=== PATIENT | male | born 1970 | race Two or more races ===

== ENCOUNTER 2017-03-19 08:42 | Emergency (ER) | payer SELFPAY ==
[2017-03-19 08:50] VITALS: BP 144/82
--- NOTE | 2017-03-19 09:14 | ER Document Report ---
ED General - General Mode of Arrival: Ambulatory Information source: Patient TRAVEL OUTSIDE OF THE [place] IN LAST 30 DAYS: No - HPI Onset: Other - see narrative - General Chief Complaint: High Blood Pressure Stated Complaint: BLOOD PRESSURE ISSUES Time Seen by Provider: 03/19/17 09:00 Notes: Patient is a 46 year old male that presents to the emergency department today with complaints of needing a medication refill. Patient states that he has been unable to see his doctor recently. Patient states that he is on lisinopril 20mg once a day and Metformin 500 mg twice a day. Patient states that he thinks his Metformin dosage needs to be increased because his sugars are running in the 160s in the morning before breakfast. Patient states his blood pressure has been well controlled with this dosage of lisinopril. (HAYDEN LEE) - Related Data Allergies/Adverse Reactions: No Known Allergies Allergy (Verified 05/31/16 07:02) Past Medical History - General Information source: Patient - Social History Smoking Status: Never Smoker Cigarette use (# per day): No Chew tobacco use (# tins/day): No Frequency of alcohol use: None Drug Abuse: None Lives with: Family Family History: Reviewed & Not Pertinent - Past Medical History Cardiac Medical History: Reports: Hx Hypertension Endocrine Medical History: Reports: Hx Diabetes Mellitus Type 2 GI Medical History: Reports: Hx Gastroesophageal Reflux Disease Psychiatric Medical History: Reports: Hx Anxiety Surgical Hx: Negative - Immunizations Hx Diphtheria, Pertussis, Tetanus Vaccination: Yes Hx Pneumococcal Vaccination: 06/14/00 Review of Systems - Review of Systems Constitutional: No symptoms reported EENT: No symptoms reported Cardiovascular: No symptoms reported Respiratory: No symptoms reported Gastrointestinal: No symptoms reported Genitourinary: No symptoms reported Male Genitourinary: No symptoms reported Musculoskeletal: No symptoms reported Skin: No symptoms reported Hematologic/Lymphatic: No symptoms reported Neurological/Psychological: No symptoms reported -: Yes All other systems reviewed and negative Physical Exam - Vital signs Vitals: Temp Pulse Resp BP Pulse Ox 98.2 F 82 18 144/82 H 97 03/19/17 08:50 03/19/17 08:50 03/19/17 08:50 03/19/17 08:50 03/19/17 08:50 - Notes Notes: Physical Exam: General: Alert, appears well. HEENT: Normocephalic. Atraumatic. PERRL. Extraocular movements intact. Oropharynx clear. Neck: Supple. Non-tender. Respiratory: No respiratory distress. Clear and equal breath sounds bilaterally. Cardiovascular: Regular rate and rhythm. Abdominal: Normal Inspection. Non-tender. No distension. Normal Bowel Sounds. Back: Non-tender. No deformity or step off. Extremities: Moves all four extremities. Upper extremities: Normal inspection. Normal ROM. Lower extremities: Normal inspection. No edema. Normal ROM. Neurological: Normal cognition. AAOx4. Normal speech. Psychological: Normal affect. Normal Mood. Skin: Warm. Dry. Normal color. (HAYDEN LEE) - Vital Signs Vital signs: Temp Pulse Resp BP Pulse Ox 98.2 F 82 18 144/82 H 97 03/19/17 08:50 03/19/17 08:50 03/19/17 08:50 03/19/17 08:50 03/19/17 08:50 Discharge - Discharge Clinical Impression: Medication refill, High blood pressure associated with diabetes Condition: Stable Disposition: HOME, SELF-CARE Additional Instructions: Take medications as prescribed. Check your blood pressure and blood sugars every few days. Follow-up with a local medical doctor to provide ongoing medical care. RETURN TO THE EMERGENCY ROOM IF ANY NEW OR WORSENING SYMPTOMS. Prescriptions: Lisinopril 20 mg PO DAILY #90 tablet Metformin HCl 850 mg PO BID #180 tablet Scribe Attestation: 03/19/17 09:17 I personally performed the services described in the documentation, reviewed and edited the documentation which was dictated to the scribe in my presence, and it accurately records my words and actions. (TOLU SKELTON) Scribe Documentation - Scribe Written by Ender:: Ender Yeung, 03/19/2017 0950 acting as scribe for :: Dulce Maria
== END 2017-03-19 09:24 | disposition home or self-care (01) ==
LOC: ER 08:42
DX: Z76.0 Encounter for issue of repeat prescription (principal); E11.9 Type 2 diabetes mellitus without complications; R03.0 Elevated blood-pressure reading, without diagnosis of hypertension; Z79.899 Other long term (current) drug therapy
CPT/HCPCS: 99283

== ENCOUNTER 2017-05-30 12:05 | Emergency (ER) | payer SELFPAY ==
[2017-05-30 12:16] VITALS: BP 127/77
--- NOTE | 2017-05-30 13:00 | ER Document Report ---
ED General - General Chief Complaint: Medication Refill Stated Complaint: BLOOD SUGAR ISSUES Time Seen by Provider: 05/30/17 12:36 Mode of Arrival: Ambulatory Information source: Patient Notes: Patient is a 47-year-old male with hypertension and diabetes who presents to the ER today for refills on his metformin and lisinopril. Patient states that he took his last pills this morning. He states that he is without insurance for the next 3 months and unable to follow-up with his primary care provider. TRAVEL OUTSIDE OF THE [place] IN LAST 30 DAYS: No - Related Data Allergies/Adverse Reactions: No Known Allergies Allergy (Verified 05/30/17 12:06) Past Medical History - General Information source: Patient - Social History Smoking Status: Unknown if Ever Smoked Family History: Reviewed & Not Pertinent - Past Medical History Cardiac Medical History: Reports: Hx Hypertension Pulmonary Medical History: Denies: Hx Tuberculosis Endocrine Medical History: Reports: Hx Diabetes Mellitus Type 2 Renal/ Medical History: Denies: Hx Peritoneal Dialysis GI Medical History: Reports: Hx Gastroesophageal Reflux Disease Psychiatric Medical History: Reports: Hx Anxiety Denies: Hx Depression - Immunizations Hx Diphtheria, Pertussis, Tetanus Vaccination: Yes Hx Pneumococcal Vaccination: 06/14/00 Review of Systems - Review of Systems Constitutional: No symptoms reported EENT: No symptoms reported Cardiovascular: No symptoms reported Respiratory: No symptoms reported Gastrointestinal: No symptoms reported Genitourinary: No symptoms reported Male Genitourinary: No symptoms reported Musculoskeletal: No symptoms reported Skin: No symptoms reported Hematologic/Lymphatic: No symptoms reported Neurological/Psychological: No symptoms reported Physical Exam - Vital signs Vitals: Temp Pulse Resp BP Pulse Ox 97.9 F 75 16 127/77 H 98 05/30/17 12:15 05/30/17 12:15 05/30/17 12:15 05/30/17 12:15 05/30/17 12:15 - Notes Notes: PHYSICAL EXAMINATION: GENERAL: Well-appearing and in no acute distress. HEAD: Atraumatic, normocephalic. EYES: Pupils equal round and reactive to light, extraocular movements intact, sclera anicteric, conjunctiva are normal. NECK: Normal range of motion, supple without lymphadenopathy LUNGS: CTAB and equal. No wheezes rales or rhonchi. HEART: Regular rate and rhythm without murmurs EXTREMITIES: Normal range of motion, no pitting edema. No cyanosis. NEUROLOGICAL: Cranial nerves grossly intact. Normal sensory/motor exams. PSYCH: Normal mood, normal affect. SKIN: Warm, Dry, normal turgor, no rashes or lesions noted Course - Vital Signs Vital signs: Temp Pulse Resp BP Pulse Ox 97.9 F 75 16 127/77 H 98 05/30/17 12:15 05/30/17 12:15 05/30/17 12:15 05/30/17 12:15 05/30/17 12:15 Discharge - Discharge Clinical Impression: Diabetes type 2, controlled Qualifiers: Diabetes mellitus complication status: with unspecified complications Diabetes mellitus tank terminal gauger insulin use: without jail use Qualified Code(s): E11.8 - Type 2 diabetes mellitus with unspecified complications HTN (hypertension) Qualifiers: Hypertension type: unspecified Qualified Code(s): I10 - Essential (primary) hypertension Condition: Stable Disposition: HOME, SELF-CARE Additional Instructions: Return immediately for any new or worsening symptoms. Follow up with primary care provider, call tomorrow to make followup appointment. Prescriptions: Lisinopril 20 mg PO DAILY #90 tablet Metformin HCl 500 mg PO BID #180 tablet
== END 2017-05-30 13:06 | disposition home or self-care (01) ==
LOC: ER 12:05
DX: E11.8 Type 2 diabetes mellitus with unspecified complications (principal); I10 Essential (primary) hypertension; Z79.899 Other long term (current) drug therapy
CPT/HCPCS: 99284

== ENCOUNTER 2017-06-22 17:46 | Emergency (ER) | payer SELFPAY ==
[2017-06-22 17:56] VITALS: BP 101/62
--- NOTE | 2017-06-22 18:21 | ER Document Report ---
HPI - HPI Patient complains to provider of: Med refill Onset: Yesterday Quality of pain: No pain Severity: None Pain Level: 0 Context: Patient states he took his last prescriptions yesterday for hypertension and anxiety. Unable to get in with for med refills and is here requesting them. Denies any problems at this time. Associated Symptoms: None Exacerbated by: Denies Relieved by: Denies Similar symptoms previously: Yes Recently seen / treated by doctor: No - ROS ROS below otherwise negative: Yes Systems Reviewed and Negative: Yes All other systems reviewed and negative - CONSTITUTIONAL Constitutional: DENIES: Fever - EENT EENT: DENIES: Congestion - NEURO Neurology: DENIES: Headache - CARDIOVASCULAR Cardiovascular: DENIES: Chest pain - RESPIRATORY Respiratory: DENIES: Trouble Breathing - GASTROINTESTINAL Gastrointestinal: DENIES: Abdominal Pain - MUSCULOSKELETAL Musculoskeletal: DENIES: Extremity pain - DERM Skin Color: Normal Past Medical History - General Information source: Patient - Social History Smoking Status: Never Smoker Frequency of alcohol use: None Drug Abuse: None Lives with: Family Family History: Reviewed & Not Pertinent - Past Medical History Cardiac Medical History: Reports: Hx Hypertension Endocrine Medical History: Reports: Hx Diabetes Mellitus Type 2 GI Medical History: Reports: Hx Gastroesophageal Reflux Disease Psychiatric Medical History: Reports: Hx Anxiety Surgical Hx: Negative - Immunizations Hx Diphtheria, Pertussis, Tetanus Vaccination: Yes Hx Pneumococcal Vaccination: 06/14/00 Vertical Provider Document - CONSTITUTIONAL Agree With Documented VS: Yes Exam Limitations: No Limitations General Appearance: WD/WN, No Apparent Distress - INFECTION CONTROL TRAVEL OUTSIDE OF THE [place] IN LAST 30 DAYS: No - HEENT HEENT: Atraumatic, Normocephalic - RESPIRATORY Respiratory: Breath Sounds Normal, No Respiratory Distress O2 Sat by Pulse Oximetry: 98 - CARDIOVASCULAR Cardiovascular: Regular Rate, Regular Rhythm - MUSCULOSKELETAL/EXTREMETIES Musculoskeletal/Extremeties: MAEW - NEURO Level of Consciousness: Awake, Alert, Appropriate - DERM Integumentary: Warm, Dry Course - Re-evaluation Re-evalutation: 06/22/17 18:15 Patient has empty prescription bottles with him. Prescriptions will be given in the same dosage as written on the bottles. - Vital Signs Vital signs: Temp Pulse Resp BP Pulse Ox 98.8 F 105 H 14 101/62 98 06/22/17 17:54 06/22/17 17:54 06/22/17 17:54 06/22/17 17:54 06/22/17 17:54 Discharge - Discharge Clinical Impression: Medication refill, Anxiety Hypertension Qualifiers: Hypertension type: essential hypertension Qualified Code(s): I10 - Essential ( primary) hypertension Condition: Good Disposition: HOME, SELF-CARE Additional Instructions: Medication refills are being provided for you at this time. You must follow-up with your doctor for future refills. Return as needed Prescriptions: Hydroxyzine HCl 25 mg PO TID PRN #60 tablet PRN Reason: Lisinopril [Prinivil 30 mg Tablet] 30 mg PO DAILY #60 tablet Paroxetine HCl 20 mg PO DAILY #120 tablet
== END 2017-06-22 18:25 | disposition home or self-care (01) ==
LOC: ER 17:46
DX: Z76.0 Encounter for issue of repeat prescription (principal); I10 Essential (primary) hypertension; F41.9 Anxiety disorder, unspecified; E11.9 Type 2 diabetes mellitus without complications
CPT/HCPCS: 99281

== ENCOUNTER 2017-09-04 19:39 | Emergency (ER) | payer SELFPAY ==
[2017-09-04 19:53] VITALS: BP 155/83
--- NOTE | 2017-09-04 20:19 | ER Document Report ---
HPI - HPI Patient complains to provider of: Med refill Onset: Other Pain Level: Denies Context: Patient states he has been out of insurance and has not been able to refill his medications as he cannot afford to go to the doctor. 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 Associated Symptoms: Other - States he is out of his glyburide, lisinopril, paroxetine, and hydroxyzine Exacerbated by: Denies Relieved by: Denies Similar symptoms previously: Yes Recently seen / treated by doctor: No - ROS ROS below otherwise negative: Yes - CONSTITUTIONAL Constitutional: DENIES: Fever, Chills - EENT EENT: DENIES: Sore Throat, Ear Pain, Nasal Drainage-Clear, Nasal Drainage- Purulent, Congestion, Eye problems - NEURO Neurology: DENIES: Headache, Weakness, Vision blurred, Dizzinesss / Vertigo - CARDIOVASCULAR Cardiovascular: DENIES: Chest pain - RESPIRATORY Respiratory: DENIES: Trouble Breathing, Coughing - GASTROINTESTINAL Gastrointestinal: DENIES: Abdominal Pain, Nausea, Patient vomiting, Diarrhea, Constipation, Black / Bloody Stools - URINARY Urinary: DENIES: Dysuria, Urgency, Frequency - REPRODUCTIVE Reproductive: DENIES: Postmenopausal, Abnormal bleeding / discharge - MUSCULOSKELETAL Musculoskeletal: DENIES: Extremity pain, Back Pain, Neck Pain, Swelling - DERM Skin Color: Normal Skin Problems: None Past Medical History - General Information source: Patient - Social History Smoking Status: Never Smoker Cigarette use (# per day): No Chew tobacco use (# tins/day): No Smoking Education Provided: No Frequency of alcohol use: None Drug Abuse: None Lives with: Family Family History: Reviewed & Not Pertinent Patient has suicidal ideation: No Patient has homicidal ideation: No - Past Medical History Cardiac Medical History: Reports: Hx Hypertension Pulmonary Medical History: Reports: None EENT Medical History: Reports: None Neurological Medical History: Reports: None Endocrine Medical History: Reports: Hx Diabetes Mellitus Type 2 Renal/ Medical History: Reports: None GI Medical History: Reports: Hx Gastroesophageal Reflux Disease Musculoskeltal Medical History: Reports None Skin Medical History: Reports None Psychiatric Medical History: Reports: Hx Anxiety, Hx Depression Traumatic Medical History: Reports: None Infectious Medical History: Reports: None Surgical Hx: Negative Past Surgical History: Reports: None - Immunizations Hx Diphtheria, Pertussis, Tetanus Vaccination: Yes Hx Pneumococcal Vaccination: 06/14/00 Vertical Provider Document - CONSTITUTIONAL Agree With Documented VS: Yes Exam Limitations: No Limitations - INFECTION CONTROL TRAVEL OUTSIDE OF THE [place] IN LAST 30 DAYS: No - HEENT HEENT: Atraumatic, Normal ENT Exam, Normocephalic, PERRLA - NECK Neck: Normal Inspection, Supple - RESPIRATORY Respiratory: Breath Sounds Normal, No Respiratory Distress, Chest Non-Tender - CARDIOVASCULAR Cardiovascular: Regular Rate, Regular Rhythm - MUSCULOSKELETAL/EXTREMETIES Musculoskeletal/Extremeties: MAEW, FROM, Non-Tender - NEURO Level of Consciousness: Awake, Alert, Appropriate Motor/Sensory: No Motor Deficit, No Sensory Deficit, No Pronator Drift - DERM Integumentary: Warm, Dry, No Rash Course - Re-evaluation Re-evalutation: 09/05/17 01:43 Patient requesting 2 month supply of medications consulted Dr. Mccord who stated noted to give the patient 1 month and have him follow-up with care in community clinic. Patient was instructed that he needed to follow-up with care in community clinic or primary doctor he needed to be reevaluated for getting any more medication. 09/05/17 01:44 - Vital Signs Vital signs: Temp Pulse Resp BP Pulse Ox 99.0 F 84 155/83 H 97 09/04/17 19:52 09/04/17 19:52 09/04/17 19:52 09/04/17 19:52 Discharge - Discharge Clinical Impression: Medication refill HTN (hypertension) Qualifiers: Hypertension type: unspecified Qualified Code(s): I10 - Essential (primary) hypertension Diabetes Qualifiers: Diabetes mellitus type: type 2 Diabetes mellitus residential insulin use: without pipe layer helper use Diabetes mellitus complication status: without complication Qualified Code(s): E11.9 - Type 2 diabetes mellitus without complications Disposition: HOME, SELF-CARE Instructions: Family Physicians / Practices Additional Instructions: He was seen today for med refills for hydroxyzine, glyburide, lisinopril, paroxetine for your chronic conditions. You need to find yourself a local doctor and continue refilling these medications with your doctor who monitors these conditions. These are not medications that can just be refilled on a regular basis without you following up with your primary doctor. If you cannot follow-up with her primary doctor due to finances you need to go to the care in community clinic so that someone is monitoring your conditions. FOLLOW-UP CARE: If you have been referred to a physician for follow-up care, call the physician s office for an appointment as you were instructed or within the next two days. If you experience worsening or a significant change in your symptoms, notify the physician immediately or return to the Emergency Department at any time for re-evaluation. Prescriptions: Hydroxyzine HCl 25 mg PO Q8HP PRN #60 tablet PRN Reason: Glyburide 2.5 mg PO DAILY #30 tablet Lisinopril [Zestril] 30 mg PO DAILY #30 tablet Paroxetine HCl 20 mg PO DAILY #60 tablet Forms: Elevated Blood Pressure Referrals: [facility] [Provider Group] - Follow up as needed
== END 2017-09-04 21:07 | disposition home or self-care (01) ==
LOC: ER 19:39
DX: Z76.0 Encounter for issue of repeat prescription (principal); I10 Essential (primary) hypertension; E11.9 Type 2 diabetes mellitus without complications; F32.9 Major depressive disorder, single episode, unspecified
CPT/HCPCS: 99281

== ENCOUNTER 2017-11-15 10:47 | Inpatient (IN) | payer SELFPAY ==
[2017-11-15] MEDS ORDERED: ONDANSETRON HCL INJ/PF 4 MG/2 ML SDV IV ONE (11:29)
[2017-11-15] MEDS ORDERED: NORMAL SALINE 1000 ML 1,000 ML IV ONE ×2 (11:30→13:24)
--- NOTE | 2017-11-15 11:31 | ER Document Report ---
ED Medical Screen (RME) - General Chief Complaint: Nausea Stated Complaint: SICK Time Seen by Provider: 11/15/17 11:28 TRAVEL OUTSIDE OF THE [place] IN LAST 30 DAYS: No - HPI Notes: 11/15/17 11:30 Obese diabetic male presents with nausea vomiting diarrhea since Wednesday. Increasing weakness. Patient has been reporting high blood sugars around 300 home. States today he woke up unable to tolerate oral intake and diffuse myalgias. Denies fever is not sure if he has ever had DKA. - Related Data Allergies/Adverse Reactions: No Known Allergies Allergy (Verified 11/15/17 10:55) Past Medical History - Past Medical History Cardiac Medical History: Reports: Hx Hypertension Endocrine Medical History: Reports: Hx Diabetes Mellitus Type 2 Renal/ Medical History: Denies: Hx Peritoneal Dialysis GI Medical History: Reports: Hx Gastroesophageal Reflux Disease Psychiatric Medical History: Reports: Hx Anxiety, Hx Depression - Immunizations Hx Diphtheria, Pertussis, Tetanus Vaccination: Yes Physical Exam - Vital signs Vitals: Temp Pulse Resp BP Pulse Ox 98.8 F 90 18 111/62 98 11/15/17 11:09 11/15/17 11:09 11/15/17 11:09 11/15/17 11:09 11/15/17 11:09 Course - Vital Signs Vital signs: Temp Pulse Resp BP Pulse Ox 98.8 F 90 18 111/62 98 11/15/17 11:09 11/15/17 11:09 11/15/17 11:09 11/15/17 11:09 11/15/17 11:09 Doctor's Discharge - Discharge Referrals: BERTA GALAVIZ MD [Primary Care Provider] - Follow up as needed
[2017-11-15 12:23] LABS: ABSOLUTE LYMPHOCYTES (AUTO) 0.9 10^3/uL (0.5-4.7); ABSOLUTE MONOCYTES (AUTO) 0.7 10^3/uL (0.1-1.4); ABSOLUTE NEUT (AUTO) 8.8 10^3/uL (1.7-8.2); BASOPHILS % (AUTO) 0.3 % (0-2); HEMATOCRIT 36.1 % (37.9-51.0); HEMOGLOBIN 12.6 g/dL (13.5-17.0); MEAN CORPUSCULAR HEMOGLOBIN 29.8 pg (27.0-33.4); MEAN CORPUSCULAR HGB CONC 34.9 g/dL (32.0-36.0); MEAN CORPUSCULAR VOLUME 85 fl (80-97); MONOCYTES % (AUTO) 7.1 % (3-13); PLATELET COUNT 160 10^3/uL (150-450); RED BLOOD COUNT 4.24 10^6/uL (4.35-5.55); RED CELL DISTRIBUTION WIDTH 13.1 % (11.5-14.0); SEGMENTED NEUTROPHILS % (AUTO) 83.6 % (42-78); TOTAL CELLS COUNTED % (AUTO) 100 %; WHITE BLOOD COUNT 10.5 10^3/uL (4.0-10.5)
[2017-11-15 12:27] LABS: AMORPHOUS SEDIMENT,URINE TRACE /HPF; APPEARANCE,URINE SLIGHTLY-CLOUDY; BILIRUBIN,URINE NEGATIVE (NEGATIVE); COLOR,URINE YELLOW; GLUCOSE, URINE NEGATIVE (NEGATIVE); KETONES,URINE NEGATIVE (NEGATIVE); LEUKOCYTE ESTERASE,URINE NEGATIVE (NEGATIVE); NITRITE,URINE NEGATIVE (NEGATIVE); PROTEIN,URINE 30 mg/dL (NEGATIVE); URINE SPECIFIC GRAVITY 1.011; UROBILINOGEN,URINE NEGATIVE mg/dL (<2.0)
[2017-11-15 12:50] LABS: VENOUS BLOOD BASE EXCESS -11.3 mmol/L; VENOUS BLOOD HCO3 14.5 mmol/L (20-32); VENOUS BLOOD PCO2 33.6 mmHg (35-63); VENOUS BLOOD PH 7.25 (7.30-7.42)
[2017-11-15 12:53] LABS: ALANINE AMINOTRANSFERASE 20 U/L (21-72); ALBUMIN 4.8 g/dL (3.5-5.0); ALKALINE PHOSPHATASE 77 U/L (38-126); ASPARTATE AMINO TRANSFERASE 17 U/L (17-59); BILIRUBIN,DIRECT 0.3 mg/dL (0.0-0.4); BILIRUBIN,TOTAL 0.3 mg/dL (0.2-1.3); CALCIUM 8.3 mg/dL (8.4-10.2); GLUCOSE 55 mg/dL (75-110); POTASSIUM 5.3 mmol/L (3.6-5.0); TOTAL PROTEIN 8.4 g/dL (6.3-8.2)
[2017-11-15] MEDS ORDERED: RINGERS SOLUTION,LACTATED 1,000 ML IV ONE (12:53)
[2017-11-15 12:58] LABS: CARBON DIOXIDE 13 mmol/L (22-30); CHLORIDE 92 mmol/L (98-107); SODIUM 134.8 mmol/L (137-145)
[2017-11-15 13:01] LABS: ANION GAP 30 (5-19); BLOOD UREA NITROGEN 171 mg/dL (7-20)
[2017-11-15] MEDS ORDERED: NORMAL SALINE 1000 ML 1,000 ML IV PRN (13:54)
[2017-11-15] MEDS ORDERED: ONDANSETRON HCL INJ/PF 4 MG/2 ML SDV IV PRN (13:54)
[2017-11-15] MEDS ORDERED: LEVALBUTEROL HCL NEB 1.25 MG/3 ML AMPUL NEB PRN (13:54)
[2017-11-15] MEDS ORDERED: ONDANSETRON 4 MG TAB.RAPDIS PO PRN (13:54)
[2017-11-15] MEDS ORDERED: ACETAMINOPHEN 325 MG TABLET PO PRN (13:54)
[2017-11-15] MEDS ORDERED: DEXTROSE 40% GEL 15 GM TUBE PO PRN ×2 (14:02)
[2017-11-15] MEDS ORDERED: DEXTROSE 50%-WATER 25 GM/50 ML DISP.SYRIN IV PRN ×2 (14:02)
[2017-11-15] MEDS ORDERED: GLUCAGON,HUMAN RECOMB 1 MG INJ IM PRN (14:02)
--- NOTE | 2017-11-15 14:08 | ER Document Report ---
ED General - General Chief Complaint: Nausea Stated Complaint: SICK Time Seen by Provider: 11/15/17 11:28 TRAVEL OUTSIDE OF THE [place] IN LAST 30 DAYS: No - HPI Patient complains to provider of: Nausea vomiting Notes: Patient information nausea vomiting. Patient states ongoing since Wednesday. Denies any chest pain abdominal pain fever chills patient states that he feels weak throughout patient states is been greater than 24 hours since he is urinated. Patient denies chest pain abdominal pain hip pain currently is on metformin for diabetes lisinopril for hypertension and Mobic for arthritic pain. PCP is in [place] no recent antibiotics no recent travel - Related Data Allergies/Adverse Reactions: No Known Allergies Allergy (Verified 11/15/17 10:55) Past Medical History - Social History Smoking Status: Never Smoker Frequency of alcohol use: None Drug Abuse: None Family History: Reviewed & Not Pertinent Patient has suicidal ideation: No Patient has homicidal ideation: No - Past Medical History Cardiac Medical History: Reports: Hx Hypertension Endocrine Medical History: Reports: Hx Diabetes Mellitus Type 2 Renal/ Medical History: Denies: Hx Peritoneal Dialysis GI Medical History: Reports: Hx Gastroesophageal Reflux Disease Psychiatric Medical History: Reports: Hx Anxiety, Hx Depression - Immunizations Hx Diphtheria, Pertussis, Tetanus Vaccination: Yes Hx Pneumococcal Vaccination: 06/14/00 Review of Systems - Review of Systems Constitutional: Malaise, Weakness EENT: No symptoms reported Cardiovascular: No symptoms reported Respiratory: No symptoms reported Gastrointestinal: Nausea, Vomiting Genitourinary: No symptoms reported Male Genitourinary: No symptoms reported Musculoskeletal: No symptoms reported Skin: No symptoms reported Hematologic/Lymphatic: No symptoms reported Neurological/Psychological: No symptoms reported -: Yes All other systems reviewed and negative Physical Exam - Vital signs Vitals: Temp Pulse Resp BP Pulse Ox 98.8 F 90 18 111/62 98 11/15/17 11:09 11/15/17 11:09 11/15/17 11:09 11/15/17 11:09 11/15/17 11:09 Interpretation: Normal - General General appearance: Appears well, Alert - HEENT Head: Normocephalic, Atraumatic Eyes: Normal Pupils: PERRL - Respiratory Respiratory status: No respiratory distress Chest status: Nontender Breath sounds: Normal Chest palpation: Normal - Cardiovascular Rhythm: Regular Heart sounds: Normal auscultation Murmur: No - Abdominal Inspection: Normal Distension: No distension Bowel sounds: Normal Tenderness: Nontender Organomegaly: No organomegaly - Back Back: Normal, Nontender - Extremities General upper extremity: Normal inspection, Nontender, Normal color, Normal ROM , Normal temperature General lower extremity: Normal inspection, Nontender, Normal color, Normal ROM , Normal temperature, Normal weight bearing. No: Rosales's sign - Neurological Neuro grossly intact: Yes Cognition: Normal Orientation: AAOx4 Bright Coma Scale Eye Opening: Spontaneous [place] Coma Scale Verbal: Oriented [place] Coma Scale Motor: Obeys Commands [place] Coma Scale Total: 15 Speech: Normal Motor strength normal: LUE, RUE, LLE, RLE Sensory: Normal - Psychological Associated symptoms: Normal affect, Normal mood - Skin Skin Temperature: Warm Skin Moisture: Dry Skin Color: Normal Course - Re-evaluation Re-evalutation: 11/15/17 15:56 Metabolic acidosis with acute renal failure and uremia more likely from dehydration patient denies taking any excess of his medications. Patient will continue IV fluids will admit the patient for further evaluation to the hospital service. - Vital Signs Vital signs: Temp Pulse Resp BP Pulse Ox 97.4 F 82 16 117/59 L 100 11/15/17 14:57 11/15/17 14:57 11/15/17 14:57 11/15/17 14:57 11/15/17 14:57 - Laboratory Result Diagrams: 11/15/17 11:51 11/15/17 11:51 Laboratory results interpreted by me: 11/15/17 11/15/17 11/15/17 11:51 11:51 11:51 RBC 4.24 L Hgb 12.6 L Hct 36.1 L Seg Neutrophils % 83.6 H Lymphocytes % 9.0 L Absolute Neutrophils 8.8 H VBG pH 7.25 L VBG pCO2 33.6 L VBG HCO3 14.5 L Sodium 134.8 L Potassium 5.3 H Chloride 92 L Carbon Dioxide 13 L Anion Gap 30 H BUN 171 H Creatinine 12.23 H Est GFR ( Amer) 5 L Est GFR (Non-Af Amer) 4 L Glucose 55 L Calcium 8.3 L Phosphorus ALT 20 L Total Protein 8.4 H Urine Protein Urine Blood 11/15/17 11/15/17 11:51 11:51 RBC Hgb Hct Seg Neutrophils % Lymphocytes % Absolute Neutrophils VBG pH VBG pCO2 VBG HCO3 Sodium Potassium Chloride Carbon Dioxide Anion Gap BUN Creatinine Est GFR ( Amer) Est GFR (Non-Af Amer) Glucose Calcium Phosphorus 12.3 H ALT Total Protein Urine Protein 30 H Urine Blood MODERATE H Discharge - Discharge Clinical Impression: Metabolic acidosis, Nausea & vomiting, Acute renal failure with uremia Condition: Good Disposition: ADMITTED INPATIENT Admitting Provider: Hospitalist - [place] [facility] Admitted: Telemetry
[2017-11-15 14:37] LABS: URINE AMPHETAMINES SCREEN NEGATIVE; URINE BENZODIAZEPINES SCREEN NEGATIVE; URINE COCAINE SCREEN NEGATIVE; URINE MARIJUANA (THC) SCREEN NEGATIVE; URINE METHADONE SCREEN NEGATIVE; URINE PHENCYCLIDINE SCREEN NEGATIVE
[2017-11-15 14:38] LABS: URINE BARBITURATES SCREEN NEGATIVE
[2017-11-15 14:49] LABS: PHOSPHORUS 12.3 mg/dL (2.5-4.5)
--- NOTE | 2017-11-15 16:21 | PDOC H&P ---
History of Present Illness Admission Date/PCP: 11/15/17 14:28 BERTA GALAVIZ MD Patient complains of: Generalized weakness History of Present Illness: DOMINIK SARABIA is a 47 year old male with a history of Diabetes, not insulin dependent Hypertension Arthritis Home medications: Lisinopril- he has 2 bottles prescribed by two different MDs. One for 30mg and one for 20 mg- he takes both daily Metformin 500mg PO BID Meloxicam 15 mg daily He reports increased thirst and worsening weakness over the past three days. In the ER he was found to have elevated creatinine and BUN and metabolic acidosis. He was treated with IV fluids and referred for admission. Past Medical History Cardiac Medical History: Reports: Hypertension Endocrine Medical History: Reports: Diabetes Mellitus Type 2 GI Medical History: Reports: Gastroesophageal Reflux Disease Social History Smoking Status: Never Smoker Frequency of Alcohol Use: None Hx Recreational Drug Use: No Hx Prescription Drug Abuse: No - Advance Directive Resuscitation Status: Full Code Family History Family History: DM Parental Family History Reviewed: Yes Children Family History Reviewed: Yes Sibling(s) Family History Reviewed.: Yes Medication/Allergy Allergies/Adverse Reactions: No Known Allergies Allergy (Verified 11/15/17 10:55) Review of Systems Constitutional: PRESENT: chills. ABSENT: headache(s) Eyes: ABSENT: visual disturbances Nose, Mouth, and Throat: ABSENT: sore throat Cardiovascular: ABSENT: chest pain, palpitations Respiratory: ABSENT: dyspnea Gastrointestinal: PRESENT: nausea. ABSENT: abdominal pain, diarrhea, vomiting Genitourinary: ABSENT: dysuria, hematuria Musculoskeletal: ABSENT: joint swelling Integumentary: ABSENT: rash Neurological: ABSENT: focal weakness Psychiatric: ABSENT: hallucinations Endocrine: ABSENT: heat intolerance Hematologic/Lymphatic: ABSENT: easy bleeding Allergic/Immunologic: ABSENT: seasonal rhinorrhea Physical Exam Vital Signs: Temp Pulse Resp BP Pulse Ox 97.4 F 82 16 117/59 L 100 11/15/17 14:57 11/15/17 14:57 11/15/17 14:57 11/15/17 14:57 11/15/17 14:57 General appearance: PRESENT: no acute distress Head exam: PRESENT: normocephalic Eye exam: PRESENT: PERRLA. ABSENT: scleral icterus Ear exam: PRESENT: normal external ear exam Mouth exam: PRESENT: dry mucosa Throat exam: ABSENT: post pharyngeal erythema Neck exam: ABSENT: tracheal deviation Respiratory exam: PRESENT: symmetrical, unlabored. ABSENT: wheezes Cardiovascular exam: PRESENT: RRR GI/Abdominal exam: PRESENT: normal bowel sounds, soft Rectal exam: PRESENT: deferred Gentrourinary exam: ABSENT: indwelling catheter Extremities exam: ABSENT: calf tenderness, pedal edema Neurological exam: PRESENT: alert, awake, oriented to person, oriented to place , oriented to time, oriented to situation Psychiatric exam: PRESENT: appropriate affect Skin exam: ABSENT: rash Assessment & Plan - Diagnosis (1) ARF (acute renal failure) Is this a current diagnosis for this admission?: Yes Plan: Likely pre renal given BUN of 171. STAT renal US ordered to r/o obstruction- pending. Continue IV fluids. Hold nephrotoxic agents. Meloxicam, Lisinopril and Metformin will be held. Monitor urine output and renal function closely. CK and Lactic acid normal. Check urine sodium and creatinine Nephrology consult requested (2) Diabetes Is this a current diagnosis for this admission?: Yes Plan: Stop Metformin Diabetic diet and Insulin sliding scale - Time Time Spent: Greater than 70 Minutes - Inpatient Certification Based on my medical assessment, after consideration of the patient's comorbidities, presenting symptoms, or acuity I expect that the services needed warrant INPATIENT care.: Yes I certify that my determination is in accordance with my understanding of Medicare's requirements for reasonable and necessary INPATIENT services [42 CFR 412.3e].: Yes Medical Necessity: Need Close Monitoring Due to Risk of Patient Decompensation, Need For IV Fluids, Risk of Complication if Not Cared For in Hospital
[2017-11-15] MEDS: PANTOPRAZOLE SODIUM 40 MG VIAL IV SCH (17:50)
--- NOTE | 2017-11-15 18:54 | RADIOLOGY REPORT (SQ) ---
EXAM DESCRIPTION: [employer] COMPLETED DATE/TIME: 11/15/2017 6:46 pm REASON FOR STUDY: ARF COMPARISON: None. TECHNIQUE: Dynamic and static grayscale images acquired of the kidneys and bladder and recorded on P ACS. Additional selected color Doppler and spectral images recorded. LIMITATIONS: None. FINDINGS: RIGHT KIDNEY: Normal size. Normal echogenicity. No solid or suspicious masses. No h ydronephrosis. No calcifications. LEFT KIDNEY: Normal size. Normal echogenicity. No solid or suspicious masses. No hydronephrosi s. No calcifications. BLADDER: No masses. OTHER FINDINGS: No other significant finding. IMPRESSION: NORMAL RENAL AND BLADDER ULTRASOUND. TECHNICAL DOCUMENTATION: JOB ID: [id number] [employer]- All Rights Reserved Reading location - IP/workstation name: [email or web address]
[2017-11-15 19:57] LABS: ARTERIAL BLOOD BASE EXCESS -8.9 mmol/L; ARTERIAL BLOOD H2CO3 0.78 mmol/L (1.05-1.35); ARTERIAL BLOOD HCO3 14.8 mmol/L (20-26); ARTERIAL BLOOD PCO2 25.9 mmHg (35-45); ARTERIAL BLOOD PH 7.37 (7.35-7.45); ARTERIAL BLOOD PO2 108.5 mmHg (80-100); ARTERIAL BLOOD TOTAL CO2 15.6 mmol/L (23-27)
--- NOTE | 2017-11-15 19:57 | EKG REPORT ---
SEVERITY:- ABNORMAL ECG - SINUS RHYTHM RIGHT BUNDLE BRANCH BLOCK : Confirmed by: Barbie Wills MD 15-Nov-2017 19:56:41
[2017-11-15 19:58] LABS: ARTERIAL BLOOD FIO2 ROOM AIR
[2017-11-15 20:07] LABS: CALCIUM 7.5 mg/dL (8.4-10.2); GLUCOSE 65 mg/dL (75-110); POTASSIUM 5.5 mmol/L (3.6-5.0)
[2017-11-15 20:13] LABS: CARBON DIOXIDE 16 mmol/L (22-30); CHLORIDE 99 mmol/L (98-107); SODIUM 136.3 mmol/L (137-145)
[2017-11-15 20:16] LABS: ANION GAP 21 (5-19); BLOOD UREA NITROGEN 161 mg/dL (7-20)
[2017-11-15 20:40] LABS: URINE CREATININE 47.4 mg/dL (22-328)
--- NOTE | 2017-11-15 20:48 | PDOC CONSULTATION ---
Consultation Consult Date: 11/15/17 Consult reason:: ARF History of Present Illness Admission Date/PCP: 11/15/17 14:28 BERTA GALAVIZ MD History of Present Illness: DOMINIK SARABIA is a 47 year old male who has a history of hypertension, diabetes and OA. He came to the ER after several days of n/v. He has been having nausea and vomiting for the past three days. He also claims that he has been working out in heat all of those days and has been getting some cramping. In the ER labs were drawn that showed a creatinine in the 12s with a BUN in the 170s. He was given several bags of saline. A renal ultrasound was done that was normal. He denies s/s of uremia. He denies muscle aches. He denies the use of illegal drugs or trying to overdose on any of his medications or over the counter medications. He denies decreased urination, difficulty with urination, dysuria, or flank pain. He denies chest pain, SOB, fever, or chills. Past Medical History Endocrine Medical History: Reports: Diabetes Mellitus Type 2 GI Medical History: Reports: Gastroesophageal Reflux Disease Psychiatric Medical History: Reports: Depression Past Surgical History Past Surgical History: Reports: None Social History Smoking Status: Never Smoker Frequency of Alcohol Use: None Hx Recreational Drug Use: No Hx Prescription Drug Abuse: No - Advance Directive Resuscitation Status: Full Code Family History Parental Family History Reviewed: No Children Family History Reviewed: No Sibling(s) Family History Reviewed.: No Medication/Allergy Home Medications: Cyclobenzaprine HCl [Flexeril 10 mg Tablet] 10 mg PO Q8 11/15/17 Glyburide [Diabeta 2.5 Mg Tablet] 2.5 mg PO DAILY 11/15/17 Hydroxyzine HCl [Atarax 25 mg Tablet] 25 mg PO QHS 11/15/17 Ibuprofen [Motrin 800 mg Tablet] 800 mg PO Q8 11/15/17 Lisinopril [Prinivil 30 mg Tablet] 30 mg PO DAILY 11/15/17 Meloxicam [Mobic] 15 mg PO DAILY 11/15/17 Metformin HCl [Glucophage 500 mg Tablet] 500 mg PO BIDACBS 11/15/17 Paroxetine HCl [Paxil 20 mg Tablet] 20 mg PO DAILY 11/15/17 Allergies/Adverse Reactions: No Known Allergies Allergy (Verified 11/15/17 10:55) Review of Systems Constitutional: PRESENT: anorexia. ABSENT: chills, fever(s), headache(s), weakness Eyes: ABSENT: visual disturbances Nose, Mouth, and Throat: ABSENT: headache(s) Cardiovascular: ABSENT: chest pain, edema, palpitations Gastrointestinal: PRESENT: nausea, vomiting. ABSENT: abdominal pain, constipation, diarrhea Genitourinary: ABSENT: difficulty urinating, dysuria, hematuria Musculoskeletal: ABSENT: muscle weakness Neurological: ABSENT: dizziness, focal weakness, numbness, weakness Physical Exam Vital Signs: Temp Pulse Resp BP Pulse Ox 98.6 F 83 19 122/54 L 100 11/15/17 20:06 11/15/17 20:06 11/15/17 20:06 11/15/17 20:06 11/15/17 20:06 Intake & Output 11/14/17 11/15/17 11/16/17 06:59 06:59 06:59 Intake Total 150 Balance 150 Weight 99.1 kg General appearance: PRESENT: no acute distress, well-developed, well-nourished Eye exam: PRESENT: EOMI, PERRLA Neck exam: PRESENT: full ROM. ABSENT: JVD Respiratory exam: PRESENT: clear to auscultation dee. ABSENT: accessory muscle use, crackles, rales, wheezes Cardiovascular exam: PRESENT: RRR, +S1, +S2 GI/Abdominal exam: PRESENT: soft. ABSENT: ascites, distended, firm, mass, tenderness Extremities exam: ABSENT: pedal edema, tenderness, +1 edema, +2 edema Musculoskeletal exam: PRESENT: normal inspection. ABSENT: tenderness Neurological exam: PRESENT: alert, awake, oriented to person, oriented to place , oriented to time, oriented to situation Psychiatric exam: PRESENT: appropriate affect, normal mood Skin exam: PRESENT: dry, intact, warm Results Laboratory Results: 11/15/17 19:24 11/15/17 11/15/17 19:24 19:40 Carbonic Acid 0.78 L HCO3/H2CO3 Ratio 18:1 ABG pH 7.37 ABG pCO2 25.9 L ABG pO2 108.5 H ABG HCO3 14.8 L ABG O2 Saturation 98.0 ABG Base Excess -8.9 FiO2 ROOM AIR Sodium 136.3 L Potassium 5.5 H Chloride 99 Carbon Dioxide 16 L Anion Gap 21 H BUN 161 H Creatinine 10.17 H Est GFR ( Amer) 7 L Est GFR (Non-Af Amer) 5 L Glucose 65 L Calcium 7.5 L Impressions: Renal Ultrasound 11/15/17 00:00 IMPRESSION: NORMAL RENAL AND BLADDER ULTRASOUND. Assessment & Plan - Diagnosis (1) ARF (acute renal failure) Is this a current diagnosis for this admission?: Yes Plan: According to the patient's history looks to be nonoliguric, will follow up with close monitoring. Due to dehydration from n/v and sweating without the ability to replace what is lost. Other factors affecting was being on meloxicam. Renal ultrasound ruled out post renal. Continue with NS at a rate of 150mL an hour, hold meloxicam. No current indications for [employer]. Will reassess with more labs. Adjust all medications to renal function of 25 mL/min/1.73 m (2) Hyperkalemia Plan: give kayexelate 30g (3) Diabetes Is this a current diagnosis for this admission?: Yes Plan: hold metformin to prevent severe metabolic acidosis worsening (4) Hypertension Plan: hold medications and give NS (5) Metabolic acidosis Plan: start on sodium bicarbonate 1300mg bid (6) Nausea & vomiting Plan: on zofran
[2017-11-15] MEDS ORDERED: SODIUM POLYSTYRENE SULFONATE 15 GM/60 ML PO ONE (21:30)
[2017-11-15] MEDS: SODIUM BICARBONATE 650 MG TABLET PO SCH (22:53)
[2017-11-16] MEDS: RINGERS SOLUTION,LACTATED 1,000 ML IV PRN ×4 (01:25→21:49)
[2017-11-16] MEDS: PANTOPRAZOLE SODIUM 40 MG VIAL IV SCH ×2 (04:51→17:41)
[2017-11-16 06:24] LABS: ABSOLUTE LYMPHOCYTES (AUTO) 1.2 10^3/uL (0.5-4.7); ABSOLUTE MONOCYTES (AUTO) 0.7 10^3/uL (0.1-1.4); ABSOLUTE NEUT (AUTO) 5.2 10^3/uL (1.7-8.2); BASOPHILS % (AUTO) 0.2 % (0-2); EOSINOPHILS % (AUTO) 0.2 % (0-6); HEMOGLOBIN 12.1 g/dL (13.5-17.0); LYMPHOCYTES % (AUTO) 16.5 % (13-45); MEAN CORPUSCULAR HEMOGLOBIN 29.7 pg (27.0-33.4); MEAN CORPUSCULAR HGB CONC 34.6 g/dL (32.0-36.0); MEAN CORPUSCULAR VOLUME 86 fl (80-97); MONOCYTES % (AUTO) 9.4 % (3-13); PLATELET COUNT 130 10^3/uL (150-450); RED BLOOD COUNT 4.07 10^6/uL (4.35-5.55); RED CELL DISTRIBUTION WIDTH 13.1 % (11.5-14.0); SEGMENTED NEUTROPHILS % (AUTO) 73.7 % (42-78); TOTAL CELLS COUNTED % (AUTO) 100 %; WHITE BLOOD COUNT 7.1 10^3/uL (4.0-10.5)
[2017-11-16 06:42] LABS: CALCIUM 8.1 mg/dL (8.4-10.2); CHOLESTEROL 217.15 mg/dL (0-200); CREATINE KINASE 100 U/L (55-170); GLUCOSE 158 mg/dL (75-110); POTASSIUM 5.4 mmol/L (3.6-5.0); TRIGLYCERIDES 511 mg/dL (<150)
[2017-11-16 06:49] LABS: CARBON DIOXIDE 16 mmol/L (22-30); CHLORIDE 106 mmol/L (98-107); SODIUM 144.3 mmol/L (137-145)
[2017-11-16 06:53] LABS: DIRECT LDL 82 mg/dL (<100)
[2017-11-16 06:54] LABS: ANION GAP 22 (5-19); BLOOD UREA NITROGEN 135 mg/dL (7-20)
[2017-11-16 06:59] LABS: PHOSPHORUS 6.9 mg/dL (2.5-4.5)
[2017-11-16] MEDS: SODIUM BICARBONATE 650 MG TABLET PO SCH ×2 (10:25→21:48)
[2017-11-16] MEDS: INSULIN LISPRO 100 UNIT/ML 3 ML VIAL SUBCUT PRN ×2 (11:50→17:37)
--- NOTE | 2017-11-16 14:00 | PDOC PROGRESS REPORT ---
Subjective Progress Note for:: 11/16/17 Subjective:: Doing better, renal function improving. Good urine output Nephrology input appreciated Reason For Visit: ARF,METABOLIC ACIDOSIS Physical Exam Vital Signs: Temp Pulse Resp BP Pulse Ox 98.1 F 83 19 123/80 100 11/16/17 11:46 11/16/17 11:46 11/16/17 11:46 11/16/17 11:46 11/16/17 11:46 Intake & Output 11/15/17 11/16/17 11/17/17 06:59 06:59 06:59 Intake Total 2400 Output Total 650 Balance 1750 Weight 98.3 kg General appearance: PRESENT: no acute distress, well-developed, well-nourished Head exam: PRESENT: normocephalic Eye exam: ABSENT: scleral icterus Ear exam: PRESENT: normal external ear exam Mouth exam: PRESENT: moist, neck supple Respiratory exam: PRESENT: symmetrical, unlabored. ABSENT: crackles Cardiovascular exam: PRESENT: RRR. ABSENT: systolic murmur GI/Abdominal exam: PRESENT: normal bowel sounds, soft. ABSENT: tenderness Rectal exam: PRESENT: deferred Gentrourinary exam: ABSENT: indwelling catheter Extremities exam: ABSENT: pedal edema Musculoskeletal exam: PRESENT: ambulatory Neurological exam: PRESENT: alert, awake, oriented to person, oriented to place , oriented to time, oriented to situation Psychiatric exam: PRESENT: appropriate affect Skin exam: ABSENT: rash Results Laboratory Results: 11/16/17 05:13 11/16/17 05:13 11/15/17 11/15/17 11/16/17 19:24 19:40 05:13 WBC RBC Hgb Hct MCV MCH MCHC RDW Plt Count Seg Neutrophils % Lymphocytes % Monocytes % Eosinophils % Basophils % Absolute Neutrophils Absolute Lymphocytes Absolute Monocytes Absolute Eosinophils Absolute Basophils Carbonic Acid 0.78 L HCO3/H2CO3 Ratio 18:1 ABG pH 7.37 ABG pCO2 25.9 L ABG pO2 108.5 H ABG HCO3 14.8 L ABG O2 Saturation 98.0 ABG Base Excess -8.9 FiO2 ROOM AIR Sodium 136.3 L 144.3 Potassium 5.5 H 5.4 H Chloride 99 106 Carbon Dioxide 16 L 16 L Anion Gap 21 H 22 H BUN 161 H 135 H D Creatinine 10.17 H 7.61 H Est GFR ( Amer) 7 L 9 L Est GFR (Non-Af Amer) 5 L 8 L Glucose 65 L 158 H Calcium 7.5 L 8.1 L Phosphorus 6.9 H D Magnesium 1.7 Triglycerides 511 H Cholesterol 217.15 H LDL Cholesterol Direct 82 VLDL Cholesterol UNABLE TO CALCULATE HDL Cholesterol 36 L TSH 11/16/17 11/16/17 05:13 05:13 WBC 7.1 RBC 4.07 L Hgb 12.1 L Hct 35.0 L MCV 86 MCH 29.7 MCHC 34.6 RDW 13.1 Plt Count 130 L Seg Neutrophils % 73.7 Lymphocytes % 16.5 Monocytes % 9.4 Eosinophils % 0.2 Basophils % 0.2 Absolute Neutrophils 5.2 Absolute Lymphocytes 1.2 Absolute Monocytes 0.7 Absolute Eosinophils 0.0 Absolute Basophils 0.0 Carbonic Acid HCO3/H2CO3 Ratio ABG pH ABG pCO2 ABG pO2 ABG HCO3 ABG O2 Saturation ABG Base Excess FiO2 Sodium Potassium Chloride Carbon Dioxide Anion Gap BUN Creatinine Est GFR ( Amer) Est GFR (Non-Af Amer) Glucose Calcium Phosphorus Magnesium Triglycerides Cholesterol LDL Cholesterol Direct VLDL Cholesterol HDL Cholesterol TSH 0.53 11/16/17 05:13 Creatine Kinase 100 Impressions: Renal Ultrasound 11/15/17 00:00 IMPRESSION: NORMAL RENAL AND BLADDER ULTRASOUND. Assessment & Plan - Diagnosis (1) ARF (acute renal failure) Is this a current diagnosis for this admission?: Yes Plan: LPrerenal Renal US did not show obstruction Continue IV fluids. Avoid nephrotoxic agents. Meloxicam, Lisinopril and Metformin on hold. Monitor urine output and renal function closely. (2) Diabetes Is this a current diagnosis for this admission?: Yes Plan: Metformin on hold Diabetic diet and Insulin sliding scale (3) Hypertension Is this a current diagnosis for this admission?: Yes Plan: Well controlled. Off Lisinopril (4) Metabolic acidosis Is this a current diagnosis for this admission?: Yes Plan: Continue bicarb supplementation - Time Time Spent with patient: 25-34 minutes
--- NOTE | 2017-11-16 15:46 | PDOC PROGRESS REPORT ---
Subjective Progress Note for:: 11/16/17 Subjective:: Patient was sitting up in his chair in a happy mood. He was stating that since he feels so well he thinks he can go home. After discussing with him about his kidneys and their function he was willing to stay longer. Patient is not following strict urine collections so I and Os are not accurate. Reason For Visit: ARF,METABOLIC ACIDOSIS Physical Exam Vital Signs: Temp Pulse Resp BP Pulse Ox 98.1 F 104 H 19 123/80 100 11/16/17 11:46 11/16/17 14:00 11/16/17 11:46 11/16/17 11:46 11/16/17 11:46 Intake & Output 11/15/17 11/16/17 11/17/17 06:59 06:59 06:59 Intake Total 2400 Output Total 650 Balance 1750 Weight 98.3 kg General appearance: PRESENT: no acute distress, well-developed, well-nourished Mouth exam: PRESENT: dry mucosa, neck supple Neck exam: PRESENT: full ROM. ABSENT: JVD Respiratory exam: PRESENT: clear to auscultation dee. ABSENT: accessory muscle use, crackles, rales, rhonchi, wheezes Cardiovascular exam: PRESENT: RRR, +S1, +S2 GI/Abdominal exam: PRESENT: soft. ABSENT: ascites, distended, firm, mass, tenderness Extremities exam: ABSENT: pedal edema, +1 edema, +2 edema Musculoskeletal exam: PRESENT: normal inspection. ABSENT: tenderness Neurological exam: PRESENT: alert, awake, oriented to person, oriented to place , oriented to time, oriented to situation Skin exam: PRESENT: dry, intact, warm Results Laboratory Results: 11/16/17 05:13 11/16/17 05:13 11/15/17 11/15/17 11/16/17 19:24 19:40 05:13 WBC RBC Hgb Hct MCV MCH MCHC RDW Plt Count Seg Neutrophils % Lymphocytes % Monocytes % Eosinophils % Basophils % Absolute Neutrophils Absolute Lymphocytes Absolute Monocytes Absolute Eosinophils Absolute Basophils Carbonic Acid 0.78 L HCO3/H2CO3 Ratio 18:1 ABG pH 7.37 ABG pCO2 25.9 L ABG pO2 108.5 H ABG HCO3 14.8 L ABG O2 Saturation 98.0 ABG Base Excess -8.9 FiO2 ROOM AIR Sodium 136.3 L 144.3 Potassium 5.5 H 5.4 H Chloride 99 106 Carbon Dioxide 16 L 16 L Anion Gap 21 H 22 H BUN 161 H 135 H D Creatinine 10.17 H 7.61 H Est GFR ( Amer) 7 L 9 L Est GFR (Non-Af Amer) 5 L 8 L Glucose 65 L 158 H Calcium 7.5 L 8.1 L Phosphorus 6.9 H D Magnesium 1.7 Triglycerides 511 H Cholesterol 217.15 H LDL Cholesterol Direct 82 VLDL Cholesterol UNABLE TO CALCULATE HDL Cholesterol 36 L TSH 11/16/17 11/16/17 05:13 05:13 WBC 7.1 RBC 4.07 L Hgb 12.1 L Hct 35.0 L MCV 86 MCH 29.7 MCHC 34.6 RDW 13.1 Plt Count 130 L Seg Neutrophils % 73.7 Lymphocytes % 16.5 Monocytes % 9.4 Eosinophils % 0.2 Basophils % 0.2 Absolute Neutrophils 5.2 Absolute Lymphocytes 1.2 Absolute Monocytes 0.7 Absolute Eosinophils 0.0 Absolute Basophils 0.0 Carbonic Acid HCO3/H2CO3 Ratio ABG pH ABG pCO2 ABG pO2 ABG HCO3 ABG O2 Saturation ABG Base Excess FiO2 Sodium Potassium Chloride Carbon Dioxide Anion Gap BUN Creatinine Est GFR ( Amer) Est GFR (Non-Af Amer) Glucose Calcium Phosphorus Magnesium Triglycerides Cholesterol LDL Cholesterol Direct VLDL Cholesterol HDL Cholesterol TSH 0.53 11/16/17 05:13 Creatine Kinase 100 Impressions: Renal Ultrasound 11/15/17 00:00 IMPRESSION: NORMAL RENAL AND BLADDER ULTRASOUND. Assessment & Plan - Diagnosis (1) ARF (acute renal failure) Is this a current diagnosis for this admission?: Yes Plan: continue on normal saline at 150mL an hour, creatinine is currently getting better. (2) Hyperkalemia Plan: improving (3) Diabetes Is this a current diagnosis for this admission?: Yes Plan: discussed proper diabetic diet (4) Hypertension Is this a current diagnosis for this admission?: Yes Plan: continue holding medications (5) Metabolic acidosis Is this a current diagnosis for this admission?: Yes Plan: improving, continue on PO sodium bicarb (6) Nausea & vomiting Plan: resolved - Notes Notes: case and plan was discussed with Dr. Moctezuma
[2017-11-16] MEDS ORDERED: ZOLPIDEM TARTRATE 5 MG TABLET PO PRN (20:39)
[2017-11-16] MEDS ORDERED: LACTULOSE SYRUP 20 GM/30 ML UDCUP PO ONE (21:15)
[2017-11-17] MEDS: RINGERS SOLUTION,LACTATED 1,000 ML IV PRN (04:46)
[2017-11-17] MEDS: PANTOPRAZOLE SODIUM 40 MG VIAL IV SCH (05:36)
[2017-11-17 06:36] LABS: ABSOLUTE EOSINOPHILS # (AUTO) 0.1 10^3/uL (0.0-0.6); ABSOLUTE LYMPHOCYTES (AUTO) 1.6 10^3/uL (0.5-4.7); ABSOLUTE MONOCYTES (AUTO) 0.6 10^3/uL (0.1-1.4); ABSOLUTE NEUT (AUTO) 4.4 10^3/uL (1.7-8.2); BASOPHILS % (AUTO) 0.5 % (0-2); EOSINOPHILS % (AUTO) 0.9 % (0-6); HEMATOCRIT 36.8 % (37.9-51.0); HEMOGLOBIN 12.7 g/dL (13.5-17.0); LYMPHOCYTES % (AUTO) 23.6 % (13-45); MEAN CORPUSCULAR HEMOGLOBIN 29.8 pg (27.0-33.4); MEAN CORPUSCULAR HGB CONC 34.4 g/dL (32.0-36.0); MEAN CORPUSCULAR VOLUME 87 fl (80-97); MONOCYTES % (AUTO) 9.3 % (3-13); PLATELET COUNT 138 10^3/uL (150-450); RED BLOOD COUNT 4.25 10^6/uL (4.35-5.55); RED CELL DISTRIBUTION WIDTH 13.1 % (11.5-14.0); SEGMENTED NEUTROPHILS % (AUTO) 65.7 % (42-78); TOTAL CELLS COUNTED % (AUTO) 100 %; WHITE BLOOD COUNT 6.8 10^3/uL (4.0-10.5)
[2017-11-17 07:00] LABS: ANION GAP 17 (5-19); BLOOD UREA NITROGEN 71 mg/dL (7-20); CALCIUM 8.9 mg/dL (8.4-10.2); CARBON DIOXIDE 22 mmol/L (22-30); CHLORIDE 107 mmol/L (98-107); GLUCOSE 179 mg/dL (75-110); PHOSPHORUS 3.8 mg/dL (2.5-4.5); POTASSIUM 4.7 mmol/L (3.6-5.0); SODIUM 145.5 mmol/L (137-145)
[2017-11-17] MEDS ORDERED: MAGNESIUM SULFATE 4 GM/100 ML RTUPB IV ONE (08:30)
[2017-11-17] MEDS: SODIUM BICARBONATE 650 MG TABLET PO SCH (09:28)
[2017-11-17] MEDS ORDERED: GLIPIZIDE 5 MG TABLET PO SCH (13:30)
--- NOTE | 2017-11-17 13:38 | PDOC DISCHARGE SUMMARY ---
General - Admit/Disc Date/PCP Admission Date/Primary Care Provider: 11/15/17 14:28 BERTA GALAVIZ MD Nephrology: Dr. Moctezuma Discharge Date: 11/17/17 - Discharge Diagnosis (1) ARF (acute renal failure) Is this a current diagnosis for this admission?: Yes Summary: Due to dehydrations, NSAID and SCEI use. Much improved (2) Diabetes Is this a current diagnosis for this admission?: Yes Summary: Metformin stopped. Glyburide continued (3) Hypertension Is this a current diagnosis for this admission?: Yes Summary: BP was running low normal. Lisinopril stopped. Amlodipine 2.5 mg daily prescription given (4) Metabolic acidosis Is this a current diagnosis for this admission?: Yes - Additional Information Resuscitation Status: Full Code Discharge Diet: Diabetic, Other (Comments) - Drink plentty of fluids- at least a half a gallon daily Discharge Activity: Balance Activity w/Rest Prescriptions: Amlodipine Besylate [Norvasc 2.5 mg Tablet] 2.5 mg PO DAILY 15 Days #15 tablet Home Medications: Cyclobenzaprine HCl [Flexeril 10 mg Tablet] 10 mg PO Q8 11/15/17 Glyburide [Diabeta 2.5 mg Tablet] 2.5 mg PO DAILY 11/15/17 Hydroxyzine HCl [Atarax 25 mg Tablet] 25 mg PO QHS 11/15/17 Paroxetine HCl [Paxil 20 mg Tablet] 20 mg PO DAILY 11/15/17 Acetaminophen [Tylenol 325 mg Tablet] 650 mg PO Q4HP PRN tablet 11/17/17 Amlodipine Besylate [Norvasc 2.5 mg Tablet] 2.5 mg PO DAILY 15 Days #15 tablet 11/17/17 History of Present Illness History of Present Illness: DOMINIK SARABIA is a 47 year old male with a history of Diabetes, not insulin dependent Hypertension Arthritis Home medications: Lisinopril- he has 2 bottles prescribed by two different MDs. One for 30mg and one for 20 mg- he takes both daily Metformin 500mg PO BID Meloxicam 15 mg daily Flexeril Glyburide Ibuprofen He reports increased thirst and worsening weakness over the past three days. In the ER he was found to have ARF with BUN of 171 and Creatinine 12.23 and metabolic acidosis. He was treated with IV fluids and referred for admission. he was treated with IV fluids. Nephrotoxic medications- NSAIDS Lisinopril held. No e/o lactic acidosis His renal function rapidly improved with hydration. Renal US showed no obstruction. Creatinine is 2.1 on the day of discharge Hospital Course Hospital Course: He was seen by the Nephrology service and will be followed by them as an outpatient for follow up labs. To see his PCP in 1 week He is ready for discharge home and was asked to drink plenty of water Physical Exam Vital Signs: Temp Pulse Resp BP Pulse Ox 98.5 F 80 18 128/77 H 99 11/17/17 08:00 11/17/17 10:54 11/17/17 10:54 11/17/17 08:00 11/17/17 10:54 Intake & Output 11/16/17 11/17/17 11/18/17 06:59 06:59 06:59 Intake Total 2400 5382 Output Total 650 Balance 1750 5382 Weight 98.3 kg 98.5 kg General appearance: PRESENT: no acute distress Respiratory exam: PRESENT: symmetrical, unlabored Neurological exam: PRESENT: alert, awake Results Laboratory Results: 11/17/17 05:24 11/17/17 05:24 11/17/17 11/17/17 05:24 05:24 WBC 6.8 RBC 4.25 L Hgb 12.7 L Hct 36.8 L MCV 87 MCH 29.8 MCHC 34.4 RDW 13.1 Plt Count 138 L Seg Neutrophils % 65.7 Lymphocytes % 23.6 Monocytes % 9.3 Eosinophils % 0.9 Basophils % 0.5 Absolute Neutrophils 4.4 Absolute Lymphocytes 1.6 Absolute Monocytes 0.6 Absolute Eosinophils 0.1 Absolute Basophils 0.0 Sodium 145.5 H Potassium 4.7 Chloride 107 Carbon Dioxide 22 Anion Gap 17 BUN 71 H Creatinine 2.13 H Est GFR ( Amer) 40 L Est GFR (Non-Af Amer) 33 L Glucose 179 H Calcium 8.9 Phosphorus 3.8 Magnesium 1.4 L 11/16/17 05:13 Creatine Kinase 100 Impressions: Renal Ultrasound 11/15/17 00:00 IMPRESSION: NORMAL RENAL AND BLADDER ULTRASOUND. Status: Imported from [facility] Qual[facility] - * PATIENT BEING DISCHARGED WITH ANY OF THE FOLLOWING DIAGNOSIS: No Plan Time Spent: Less than 30 Minutes
[2017-11-17] MEDS: INSULIN LISPRO 100 UNIT/ML 3 ML VIAL SUBCUT PRN (13:39)
--- NOTE | 2017-11-17 13:46 | PDOC PROGRESS REPORT ---
Subjective Progress Note for:: 11/17/17 Subjective:: patient was seen today sitting up in his chair feeling well. He had no concerns at the time. He said that he was having significant urine out put. He denies chest pain, SOB, fevers, chills, n/v/d/c. Reason For Visit: ARF,METABOLIC ACIDOSIS Physical Exam Vital Signs: Temp Pulse Resp BP Pulse Ox 98.5 F 80 18 128/77 H 99 11/17/17 08:00 11/17/17 10:54 11/17/17 10:54 11/17/17 08:00 11/17/17 10:54 Intake & Output 11/16/17 11/17/17 11/18/17 06:59 06:59 06:59 Intake Total 2400 5382 Output Total 650 Balance 1750 5382 Weight 98.3 kg 98.5 kg General appearance: PRESENT: no acute distress, well-developed, well-nourished Mouth exam: PRESENT: moist, neck supple Neck exam: PRESENT: full ROM. ABSENT: JVD Respiratory exam: PRESENT: clear to auscultation dee. ABSENT: accessory muscle use, crackles, rales, rhonchi, wheezes Cardiovascular exam: PRESENT: RRR, +S1, +S2 GI/Abdominal exam: PRESENT: soft. ABSENT: ascites, distended, firm, mass, tenderness Extremities exam: ABSENT: pedal edema, tenderness, +1 edema, +2 edema Musculoskeletal exam: PRESENT: normal inspection. ABSENT: tenderness Neurological exam: PRESENT: alert, awake, oriented to person, oriented to place , oriented to time, oriented to situation, CN II-XII grossly intact. ABSENT: motor sensory deficit Psychiatric exam: PRESENT: appropriate affect, normal mood Skin exam: PRESENT: dry, intact, warm Results Laboratory Results: 11/17/17 05:24 11/17/17 05:24 11/17/17 11/17/17 05:24 05:24 WBC 6.8 RBC 4.25 L Hgb 12.7 L Hct 36.8 L MCV 87 MCH 29.8 MCHC 34.4 RDW 13.1 Plt Count 138 L Seg Neutrophils % 65.7 Lymphocytes % 23.6 Monocytes % 9.3 Eosinophils % 0.9 Basophils % 0.5 Absolute Neutrophils 4.4 Absolute Lymphocytes 1.6 Absolute Monocytes 0.6 Absolute Eosinophils 0.1 Absolute Basophils 0.0 Sodium 145.5 H Potassium 4.7 Chloride 107 Carbon Dioxide 22 Anion Gap 17 BUN 71 H Creatinine 2.13 H Est GFR ( Amer) 40 L Est GFR (Non-Af Amer) 33 L Glucose 179 H Calcium 8.9 Phosphorus 3.8 Magnesium 1.4 L 11/16/17 05:13 Creatine Kinase 100 Impressions: Renal Ultrasound 11/15/17 00:00 IMPRESSION: NORMAL RENAL AND BLADDER ULTRASOUND. Assessment & Plan - Diagnosis (1) ARF (acute renal failure) Is this a current diagnosis for this admission?: Yes Plan: Greatly improved, at this time the patient is clear for discharge from nephrology's standpoint. Advised him to drink plenty of water and follow up with Dr. Moctezuma's office in 10 to 14 days. (2) Hyperkalemia Plan: stable (3) Diabetes Is this a current diagnosis for this admission?: Yes Plan: continue to hold metformin until GFR for kidneys is above 40. (4) Hypertension Is this a current diagnosis for this admission?: Yes Plan: well controlled (5) Metabolic acidosis Is this a current diagnosis for this admission?: Yes Plan: decreasing sodium bicarb to 650mg BID (6) Hypomagnesemia Plan: most likely due to increased urination. Once he receives his IV magnesium, recommend 400mg of PO magnesium qd for when he is discharged - Notes Notes: Patients case was discussed and reviewed with Dr. Moctezuma
[2017-11-17 14:33] VITALS: BP 137/75
[2017-11-18] MEDS ORDERED: AMLODIPINE BESYLATE 2.5 MG TABLET PO SCH (10:00)
== END 2017-11-17 19:02 | disposition home or self-care (01) | DRG 683 ==
LOC: ER 10:47 → EH 14:28 → 4S 15:26
PROVIDERS: ADMIT Internal Medicine; ATTEND Internal Medicine
DX: N17.9 Acute kidney failure, unspecified (principal); E87.2 Acidosis; E83.42 Hypomagnesemia; E11.9 Type 2 diabetes mellitus without complications; E86.0 Dehydration; I10 Essential (primary) hypertension; K21.9 Gastro-esophageal reflux disease without esophagitis; M19.90 Unspecified osteoarthritis, unspecified site; F41.8 Other specified anxiety disorders; Z79.84 Long term (current) use of oral hypoglycemic drugs; Z79.899 Other long term (current) drug therapy
CPT/HCPCS: 36415; 36600; 76775; 80048; 80053; 80061; 80307; 81001; 82550; 82570; 82803; 82962; 83036; 83605; 83735; 84100; 84300; 84443; 85025; 93005; 93010; 96361; 96374; 99285; J1815; J2405; J3475; J7030; J7120; S0164

== ENCOUNTER 2017-11-29 11:27 | Emergency (ER) | payer SELFPAY ==
[2017-11-29 11:32] VITALS: BP 136/77
--- NOTE | 2017-11-29 12:10 | ER Document Report ---
HPI - HPI Pain Level: 5 Notes: Patient is a 47-year-old male with a history of hypertension, diabetes, arthritis, anxiety, insomnia who presents to the ED primarily for medication refills and having trouble sleeping over the last 3 days. Patient states that he also has ongoing left-sided thoracic back pain and an occasional intermittent headache which is not unusual for him. Patient states that his pains are "mild" which is what he takes medicine for. Patient states that he has been monitoring his glucose and it has been running in the low 100s. Patient was admitted to the hospital for acute renal failure about 2 weeks ago. Patient states that he has been feeling much better since then and is eating and drinking without any difficulties. He is urinating normally and having normal bowel movements. Patient states he does not feel ill otherwise. He denies any drug allergies. Patient has not been in to see his primary care doctor since he was discharged. Denies any drug allergies or IV drug use. Denies any current headache, fever, head injury, neck pain, changes in vision/ speech/mentation/hearing, URI, sore throat, chest pain, palpitations, syncope, cough, shortness of breath, wheeze, dyspnea, abdominal pain, nausea/vomiting/ diarrhea, urinary retention, dysuria, hematuria, loss of control of bowel or bladder, numbness/tingling, saddle anesthesia, muscle paralysis/weakness, or rash. - ROS Systems Reviewed and Negative: Yes All other systems reviewed and negative Past Medical History - Social History Smoking Status: Never Smoker Family History: DM - Past Medical History Cardiac Medical History: Reports: Hx Hypertension Endocrine Medical History: Reports: Hx Diabetes Mellitus Type 2 Renal/ Medical History: Denies: Hx Peritoneal Dialysis GI Medical History: Reports: Hx Gastroesophageal Reflux Disease Psychiatric Medical History: Reports: Hx Anxiety, Hx Depression - Immunizations Hx Diphtheria, Pertussis, Tetanus Vaccination: Yes Hx Pneumococcal Vaccination: 06/14/00 Vertical Provider Document - CONSTITUTIONAL Agree With Documented VS: Yes Notes: PHYSICAL EXAMINATION: GENERAL: Well-appearing, well-nourished and in no acute distress. Neck: FROM. Strength 5+/5. Non-tender. Spurling negative. Kernig/brudzinski neg. no rigidity/meningismus. LUNGS: Breath sounds clear to auscultation bilaterally and equal. No wheezes rales or rhonchi. HEART: Regular rate and rhythm without murmurs, rubs, gallops. ABDOMEN: Soft, nontender, nondistended abdomen. No guarding, no rebound. No masses appreciated. Normal bowel sounds present. No CVA tenderness bilaterally. No pulsatile mass Musculoskeletal: LE's b/l: FROM to passive/active. Strength 5+/5. No deficits noted. No bony tenderness of extremities. Back: FROM to passive/active. Strength 5+/5. No vertebral point tenderness, stepoffs, or deformities. No other bony tenderness, erythema, swelling, or ecchymosis. SLR negative b/l. + mild tenderness to the Left T-paraspinal mm, correlates with pain described. Mild spasming. No SI jt tenderness. No foot drop Extremities: No cyanosis, clubbing, or edema b/l. Peripheral pulses 2+. Capillary refill less than 2 seconds. NEUROLOGICAL: Normal speech, normal gait. Normal sensory, motor exams. Reflexes 2+ b/l. PSYCH: Normal mood, normal affect. SKIN: Warm, Dry, normal turgor, no rashes or lesions noted. - INFECTION CONTROL TRAVEL OUTSIDE OF THE [place] IN LAST 30 DAYS: No Course - Re-evaluation Re-evalutation: 11/29/17 12:07 Patient is an afebrile, well-hydrated, 47-year-old male who presents to the ED with acute on chronic left-sided thoracic back pain and report of insomnia. Vitals are acceptable. PE is otherwise unremarkable for any focal neurological deficits. Accu-Chek was 147. Patient has no significant tachycardia, tachypnea , or hypoxia. He is tolerating p.o. without difficulties and is nontoxic- appearing. Patient reiterated multiple times that he is primarily here just for medication refills, and to see if there is another medication that may help with his back pain. No labs or imaging warranted at this time based on H&P. No other red flag symptoms to note. Low suspicion for any meningitis, fracture , expanding/ruptured AAA, cauda equina syndrome, epidural mass lesion/abscess, herniated disc causing severe spinal stenosis, or other systemic infection at this time. Patient is aware that his condition can change from initial presentation and that he needs monitor symptoms closely for any acute changes. I will send him home with a prescription for baclofen and refill his hydroxyzine , Paxil. Patient was requesting refills of his ibuprofen, metformin, and lisinopril as well. I reviewed the discharge summary and the nephrology consult and they stopped the metformin as well as the lisinopril and ibuprofen due to his renal failure. They did start him on Norvasc. Advised patient that he needs to follow-up with nephrology as well as primary care doctor before starting those medications again. Conservative measures otherwise for symptoms. Recheck with your PCM this week. Return to the ED with any worsening /concerning symptoms otherwise as reviewed in discharge. Patient is in agreement. - Vital Signs Vital signs: Temp Pulse Resp BP Pulse Ox 99.2 F 99 16 136/77 H 97 11/29/17 11:30 11/29/17 11:30 11/29/17 11:30 11/29/17 11:30 11/29/17 11:30 Discharge - Discharge Clinical Impression: Insomnia Qualifiers: Insomnia type: unspecified Qualified Code(s): G47.00 - Insomnia, unspecified Thoracic back pain Qualifiers: Chronicity: acute Back pain laterality: left Qualified Code(s): M54.6 - Pain in thoracic spine Condition: Stable Disposition: HOME, SELF-CARE Instructions: Insomnia ([facility]), Muscle Relaxers ([facility]) Additional Instructions: Rest, Ice, Compression, Elevation Tylenol/ibuprofen as needed Light stretches daily Strength exercises as able Moist heat and massage may help F/u with your PCP this week for a recheck and to review your medications* Consider consult(s) with Orthopedics/physical therapy for ongoing/worsening symptoms Return to the ED with any worsening symptoms and/or development of fever, headache, chest pain, palpitations, syncope, shortness of breath, trouble breathing, abdominal pain, n/v/d, blood in stool/urine, loss of control of bowel /bladder, urinary retention, muscle weakness/paralysis, saddle anesthesia, numbness/tingling, or other worsening symptoms that are concerning to you. Prescriptions: Hydroxyzine HCl 25 mg PO QHS PRN #10 tablet PRN Reason: Baclofen [Baclofen 10 mg Tablet] 5 - 10 mg PO BID PRN #10 tablet PRN Reason: Paroxetine HCl 20 mg PO DAILY #15 tablet Referrals: MEÑO SUTHERLAND MD [NO LOCAL MD] - Follow up in 3-5 days
== END 2017-11-29 12:25 | disposition home or self-care (01) ==
LOC: ER 11:27
DX: Z76.0 Encounter for issue of repeat prescription (principal); G47.00 Insomnia, unspecified; M54.6 Pain in thoracic spine; G89.29 Other chronic pain; F41.9 Anxiety disorder, unspecified; F32.9 Major depressive disorder, single episode, unspecified; R51 Headache; E11.9 Type 2 diabetes mellitus without complications; I10 Essential (primary) hypertension; Z79.899 Other long term (current) drug therapy
CPT/HCPCS: 82962; 99284

== ENCOUNTER 2018-02-10 00:43 | Emergency (ER) | payer SELFPAY ==
--- NOTE | 2018-02-10 01:58 | ER Document Report ---
ED Medical Screen (RME) - General Chief Complaint: Abdominal Pain Stated Complaint: VOMITING Time Seen by Provider: 02/10/18 01:54 Mode of Arrival: Medic Information source: Patient Notes: Patient presents complaining of left lower quadrant pain that started yesterday. Patient reports nausea and vomiting with diarrhea. Patient states he is vomited 4 times and had diarrhea 2 episodes. Patient denies any blood in emesis or stool. Patient does report a similar episode 2 weeks ago in which he states he was vomiting blood at that time. Patient denies any urinary symptoms. Patient has a history of high blood pressure, diabetes and anxiety. I have greeted and performed a rapid initial assessment of this patient. A comprehensive ED assessment and evaluation of the patient, analysis of test results and completion of the medical decision making process will be conducted by additional ED providers. TRAVEL OUTSIDE OF THE [place] IN LAST 30 DAYS: No - Related Data Allergies/Adverse Reactions: No Known Allergies Allergy (Verified 11/29/17 11:30) Past Medical History - Past Medical History Cardiac Medical History: Reports: Hx Hypertension Endocrine Medical History: Reports: Hx Diabetes Mellitus Type 2 Renal/ Medical History: Denies: Hx Peritoneal Dialysis GI Medical History: Reports: Hx Gastroesophageal Reflux Disease Psychiatric Medical History: Reports: Hx Anxiety, Hx Depression - Immunizations Hx Diphtheria, Pertussis, Tetanus Vaccination: Yes History of Influenza Vaccine for 03/2017 - 08/2017 Season: Unknown Physical Exam - Vital signs Vitals: Temp Pulse Resp BP Pulse Ox 99.9 F 79 18 126/67 H 99 02/10/18 00:50 02/10/18 00:50 02/10/18 00:50 02/10/18 00:50 02/10/18 00:50 - Abdominal Tenderness: Tender - Left lower quadrant Course - Vital Signs Vital signs: Temp Pulse Resp BP Pulse Ox 99.9 F 79 18 126/67 H 99 02/10/18 00:50 02/10/18 00:50 02/10/18 00:50 02/10/18 00:50 02/10/18 00:50 Doctor's Discharge - Discharge Referrals: BERTA GALAVIZ MD [Primary Care Provider] - Follow up as needed
[2018-02-10 02:30] LABS: ABSOLUTE LYMPHOCYTES (AUTO) 1.1 10^3/uL (0.5-4.7); ABSOLUTE MONOCYTES (AUTO) 0.4 10^3/uL (0.1-1.4); ABSOLUTE NEUT (AUTO) 5.8 10^3/uL (1.7-8.2); BASOPHILS % (AUTO) 0.2 % (0-2); EOSINOPHILS % (AUTO) 0.4 % (0-6); HEMATOCRIT 35.4 % (37.9-51.0); HEMOGLOBIN 12.1 g/dL (13.5-17.0); LYMPHOCYTES % (AUTO) 15.2 % (13-45); MEAN CORPUSCULAR HEMOGLOBIN 30.6 pg (27.0-33.4); MEAN CORPUSCULAR HGB CONC 34.4 g/dL (32.0-36.0); MEAN CORPUSCULAR VOLUME 89 fl (80-97); MONOCYTES % (AUTO) 5.9 % (3-13); PLATELET COUNT 163 10^3/uL (150-450); RED BLOOD COUNT 3.97 10^6/uL (4.35-5.55); RED CELL DISTRIBUTION WIDTH 13.3 % (11.5-14.0); SEGMENTED NEUTROPHILS % (AUTO) 78.3 % (42-78); TOTAL CELLS COUNTED % (AUTO) 100 %; WHITE BLOOD COUNT 7.4 10^3/uL (4.0-10.5)
[2018-02-10 02:39] LABS: VENOUS BLOOD BASE EXCESS 1.4 mmol/L; VENOUS BLOOD PCO2 46.6 mmHg (35-63); VENOUS BLOOD PH 7.38 (7.30-7.42)
[2018-02-10 02:41] LABS: APPEARANCE,URINE CLEAR; BILIRUBIN,URINE NEGATIVE (NEGATIVE); COLOR,URINE YELLOW; GLUCOSE, URINE >=500 mg/dL (NEGATIVE); KETONES,URINE 20 mg/dL (NEGATIVE); LEUKOCYTE ESTERASE,URINE NEGATIVE (NEGATIVE); NITRITE,URINE NEGATIVE (NEGATIVE); PROTEIN,URINE 30 mg/dL (NEGATIVE); URINE SPECIFIC GRAVITY 1.029
[2018-02-10 02:55] LABS: ALANINE AMINOTRANSFERASE 31 U/L (21-72); ALBUMIN 4.9 g/dL (3.5-5.0); ALKALINE PHOSPHATASE 80 U/L (38-126); ANION GAP 17 (5-19); ASPARTATE AMINO TRANSFERASE 22 U/L (17-59); BILIRUBIN,DIRECT 0.3 mg/dL (0.0-0.4); BILIRUBIN,TOTAL 0.5 mg/dL (0.2-1.3); BLOOD UREA NITROGEN 33 mg/dL (7-20); CALCIUM 9.7 mg/dL (8.4-10.2); CARBON DIOXIDE 25 mmol/L (22-30); CHLORIDE 98 mmol/L (98-107); GLUCOSE 179 mg/dL (75-110); LIPASE 121.5 U/L (23-300); POTASSIUM 4.4 mmol/L (3.6-5.0); SODIUM 140.3 mmol/L (137-145); TOTAL PROTEIN 8.4 g/dL (6.3-8.2)
[2018-02-10] MEDS ORDERED: NORMAL SALINE 1000 ML 1,000 ML IV ONE (04:03)
[2018-02-10] MEDS ORDERED: ONDANSETRON HCL INJ/PF 4 MG/2 ML SDV IV ONE (04:03)
--- NOTE | 2018-02-10 05:14 | RADIOLOGY REPORT (SQ) ---
Abdomen single view on 02/10/2018 at 5:21 AM Clinical indications: Left lower quadrant pain, nausea and vomiting and diarrhea COMPARISON: None FINDINGS: Calcification in the left pelvis likely represents phlebolith. If there is high clinical concern for left distal ureteral stone consider CT. Calcifications in the right abdomen likely represent phleboliths as well. Degenerative changes are noted in the spine. Bowel gas pattern is unremarkable. No increased stool to suggest constipation is noted. IMPRESSION: Nonspecific abdomen. If there is high clinical concern for left distal ureteral stone, CT could better evaluate.
--- NOTE | 2018-02-10 06:12 | ER Document Report ---
ED GI/ - General Chief Complaint: Abdominal Pain Stated Complaint: VOMITING Time Seen by Provider: 02/10/18 01:54 Mode of Arrival: Medic Information source: Patient Notes: Patient is a 47-year-old male who presents with chief complaint of left lower quadrant pain that started yesterday. He reports associated nausea, vomiting and diarrhea. Patient denies any history of constipation. Patient denies any fever. TRAVEL OUTSIDE OF THE [place] IN LAST 30 DAYS: No - Related Data Allergies/Adverse Reactions: No Known Allergies Allergy (Verified 11/29/17 11:30) Past Medical History - General Information source: Patient - Social History Smoking Status: Never Smoker Frequency of alcohol use: None Drug Abuse: None Family History: DM Patient has suicidal ideation: No Patient has homicidal ideation: No - Past Medical History Cardiac Medical History: Reports: Hx Hypertension Endocrine Medical History: Reports: Hx Diabetes Mellitus Type 2 Renal/ Medical History: Denies: Hx Peritoneal Dialysis GI Medical History: Reports: Hx Gastroesophageal Reflux Disease Psychiatric Medical History: Reports: Hx Anxiety, Hx Depression - Immunizations Hx Diphtheria, Pertussis, Tetanus Vaccination: Yes Hx Pneumococcal Vaccination: 06/14/00 Review of Systems - Review of Systems Constitutional: No symptoms reported EENT: No symptoms reported Cardiovascular: No symptoms reported Respiratory: No symptoms reported Gastrointestinal: See HPI Genitourinary: No symptoms reported Male Genitourinary: No symptoms reported Musculoskeletal: No symptoms reported Skin: No symptoms reported Hematologic/Lymphatic: No symptoms reported Neurological/Psychological: No symptoms reported Physical Exam - Vital signs Vitals: Temp Pulse Resp BP Pulse Ox 99.9 F 79 18 126/67 H 99 02/10/18 00:50 02/10/18 00:50 02/10/18 00:50 02/10/18 00:50 02/10/18 00:50 - Notes Notes: PHYSICAL EXAMINATION: GENERAL: Well-appearing, well-nourished and in no acute distress. HEAD: Atraumatic, normocephalic. EYES: Pupils equal round and reactive to light, extraocular movements intact, sclera anicteric, conjunctiva are normal. ENT: Nares patent, oropharynx clear without exudates. Moist mucous membranes. NECK: Normal range of motion, supple without lymphadenopathy LUNGS: Breath sounds clear to auscultation bilaterally and equal. No wheezes rales or rhonchi. HEART: Regular rate and rhythm without murmurs ABDOMEN: Soft, nondistended abdomen. Tenderness to palpation to left lower quadrant, abdomen otherwise soft and nontender. No guarding, no rebound. No masses appreciated. Musculoskeletal: Normal range of motion, no pitting or edema. No cyanosis. NEUROLOGICAL: Cranial nerves grossly intact. Normal speech, normal gait. Normal sensory, motor exams PSYCH: Normal mood, normal affect. SKIN: Warm, Dry, normal turgor, no rashes or lesions noted. Course - Re-evaluation Re-evalutation: CBC, BMP, lipase are all unremarkable. KUB x-ray with no acute findings. Urinalysis with protein, ketones and greater than 500 glucose present. Overall patient appears well, vital signs are stable. Will send patient for a CT limited to evaluate for renal stone as patient now reports that the pain originates in the left flank and radiates down to the left lower quadrant. 02/10/18 06:50 CT renal stone protocol is negative for any acute findings. Patient reports he is feeling better. Will discharge patient home with prescription for Zofran. Patient given red flag warning signs as outlined in his discharge instructions. - Vital Signs Vital signs: Temp Pulse Resp BP Pulse Ox 99.9 F 80 18 120/72 98 02/10/18 00:50 02/10/18 06:11 02/10/18 06:11 02/10/18 06:11 02/10/18 06:11 - Laboratory Result Diagrams: 02/10/18 02:15 02/10/18 02:15 Laboratory results interpreted by me: 02/10/18 02/10/18 02/10/18 02:15 02:15 02:15 RBC 3.97 L Hgb 12.1 L Hct 35.4 L Seg Neutrophils % 78.3 H BUN 33 H Glucose 179 H Total Protein 8.4 H Urine Protein 30 H Urine Glucose (UA) >=500 H Urine Ketones 20 H Urine Urobilinogen 2.0 H Discharge - Discharge Clinical Impression: Nausea Abdominal pain Qualifiers: Abdominal location: left lower quadrant Qualified Code(s): R10.32 - Left lower quadrant pain Condition: Stable Disposition: HOME, SELF-CARE Additional Instructions: Abdominal Pain There are many causes of abdominal pain. Pain can mean a serious problem requiring surgery (such as appendicitis). It can also be an innocent problem that goes away on its own (such as a viral infection). Often, time must pass to determine the cause of pain. The physician does not feel that hospitalization is necessary, at present. Things may change within the next 24 hours. Call the doctor or come back for re- examination if any problems occur, such as: (1) Pain that becomes more severe, steady, or becomes concentrated in one specific area. Also, pain that is more severe with movement or coughing. (2) Vomiting that persists or becomes more frequent. (3) Blood in the vomitus, urine, or bowel movements. Blood in the stool may have a tarry or black appearance. (4) Shaking chills or fever greater than 100 degrees F. (5) The abdomen becomes more distended or swollen. (6) Bowel movements cease. (7) Failure to improve as expected. Your workup today was unremarkable. Please drink plenty of fluids. Please follow-up with your primary care provider if you continue to have this type of pain. Please return to the emergency department for any of the above concerns.* Prescriptions: Ondansetron [Zofran Odt 4 mg Tablet] 1 - 2 tab PO Q4H PRN #15 tab.rapdis PRN Reason: For Nausea/Vomiting Forms: Return to Work Referrals: BERTA GALAVIZ MD [NO LOCAL MD] - Follow up as needed
--- NOTE | 2018-02-10 06:26 | RADIOLOGY REPORT (SQ) ---
PROCEDURE: CT OF THE ABDOMEN AND PELVIS WITHOUT INTRAVENOUS CONTRAST HISTORY: eval for LLQ/L flank pain Indication: Same as above Comparison: None Technique: The study was completed on 02/10/2018 at 6:07 AM, local time CT of the abdomen and pelvis was done without intravenous contrast. Images were obtained from the lung base to the level of the pubic symphysis in axial plane, followed by orthogonal sagittal and coronal reconstruction. Oral contrast was not given for the study. This exam was performed according to our departmental dose-optimization program, which includes automated exposure control, adjustment of the mA and/or KV according to the patient's size and/or use of iterative reconstruction technique. FINDINGS: Images through the lung bases do not show any focal infiltrates or pleural effusions. The liver, gallbladder, pancreas, spleen and the bilateral adrenal glands appear unremarkable, given the limitation of lack of intravenous contrast. The bilateral kidneys do not show any evidence of hydronephrosis or nephrolithiasis. The bilateral ureters and the bilateral periureteral soft tissues and fat planes are unremarkable. The urinary bladder is unremarkable, without any evidence of wall thickening, calculi or filling defects. The small bowel appears unremarkable, without any evidence of small bowel obstruction or bowel wall thickening. There is no CT evidence of acute appendicitis, pericecal inflammatory change or ileocecal mesenteric adenitis. The ileocecal junction appears unremarkable. There is no CT evidence of acute colonic diverticulitis or colitis or large bowel obstruction. There is no pathological lymphadenopathy in the retroperitoneum or in the pelvic region. There is no evidence of free fluid or free air in the abdomen or the pelvic region. There is no clinically significant abdominal aortic aneurysm. There is no clinically significant inguinal or ventral hernia. Dystrophic parenchymal calcification in the prostate is noted The visualized lumbar spine shows mild multilevel degenerative change. The paravertebral soft tissues are unremarkable. The remainder of the pelvic structures are unremarkable. IMPRESSION: There are no acute or significant findings on the current study
[2018-02-10] MEDS ORDERED: ONDANSETRON ODT 4 MG TAB (6 TAB/ER DISP) PO PRN (06:47)
[2018-02-10 07:03] VITALS: BP 143/78
== END 2018-02-10 07:02 | disposition home or self-care (01) ==
LOC: ER 00:43
DX: R10.32 Left lower quadrant pain (principal); R10.9 Unspecified abdominal pain; R11.2 Nausea with vomiting, unspecified; R19.7 Diarrhea, unspecified; I10 Essential (primary) hypertension; E11.9 Type 2 diabetes mellitus without complications; Z87.19 Personal history of other diseases of the digestive system
CPT/HCPCS: 99284; 96374; 36415; 83690; 85025; 80053; 81001; 82803; 74018; 76380; J2405; J7030

== ENCOUNTER 2018-06-19 11:06 | Emergency (ER) | payer SELFPAY ==
[2018-06-19 11:10] VITALS: BP 145/75
--- NOTE | 2018-06-19 11:47 | ER Document Report ---
HPI - HPI Patient complains to provider of: med refill Time Seen by Provider: 06/19/18 11:35 Onset/Duration: Gradual Quality of pain: No pain Pain Level: Denies Context: 48-year-old male presents to ED for med refills he lost his job and could not go to the doctor to refill his medications he does understand that he needs to follow-up with his primary doctor for refills of his lisinopril and metformin. He states he is having no symptoms at this time he just needs his medication. He has been instructed that he needs to not come to the ED per for refills but go to the primary doctor. Associated Symptoms: None Exacerbated by: Denies Relieved by: Denies Similar symptoms previously: Yes Recently seen / treated by doctor: Yes - ROS ROS below otherwise negative: Yes - CONSTITUTIONAL Constitutional: DENIES: Fever, Chills - EENT EENT: DENIES: Sore Throat, Ear Pain, Nasal Drainage-Clear, Nasal Drainage- Purulent, Congestion, Eye problems - NEURO Neurology: DENIES: Headache, Weakness, Vision blurred, Dizzinesss / Vertigo - CARDIOVASCULAR Cardiovascular: DENIES: Chest pain - RESPIRATORY Respiratory: DENIES: Trouble Breathing, Coughing - GASTROINTESTINAL Gastrointestinal: DENIES: Abdominal Pain, Nausea, Patient vomiting, Diarrhea, Constipation, Black / Bloody Stools - URINARY Urinary: DENIES: Dysuria, Urgency, Frequency - REPRODUCTIVE Reproductive: DENIES: :, Postmenopausal, Abnormal bleeding / discharge - MUSCULOSKELETAL Musculoskeletal: DENIES: Extremity pain, Back Pain, Neck Pain, Swelling - DERM Skin Color: Normal Skin Problems: None Past Medical History - General Information source: Patient - Social History Smoking Status: Never Smoker Frequency of alcohol use: None Drug Abuse: None Lives with: Family Family History: DM Patient has suicidal ideation: No Patient has homicidal ideation: No - Past Medical History Cardiac Medical History: Reports: Hx Hypertension Pulmonary Medical History: Reports: None EENT Medical History: Reports: None Neurological Medical History: Reports: None Endocrine Medical History: Reports: Hx Diabetes Mellitus Type 2 Renal/ Medical History: Reports: None Malignancy Medical History: Reports None GI Medical History: Reports: Hx Gastroesophageal Reflux Disease Musculoskeletal Medical History: Reports None Skin Medical History: Reports None Psychiatric Medical History: Reports: Hx Anxiety, Hx Depression Traumatic Medical History: Reports: None Infectious Medical History: Reports: None Surgical Hx: Negative Past Surgical History: Reports: None - Immunizations Hx Diphtheria, Pertussis, Tetanus Vaccination: Yes Hx Pneumococcal Vaccination: 06/14/00 Vertical Provider Document - CONSTITUTIONAL Agree With Documented VS: Yes Exam Limitations: No Limitations General Appearance: WD/WN, No Apparent Distress - INFECTION CONTROL TRAVEL OUTSIDE OF THE [place] IN LAST 30 DAYS: No - HEENT HEENT: Atraumatic, Normal ENT Exam, Normocephalic, PERRLA - NECK Neck: Normal Inspection - RESPIRATORY Respiratory: Breath Sounds Normal, No Respiratory Distress - CARDIOVASCULAR Cardiovascular: Regular Rate, Regular Rhythm - GI/ABDOMEN Gastrointestinal: Abdomen Soft, Abdomen Non-Tender - BACK Back: Normal Inspection - MUSCULOSKELETAL/EXTREMETIES Musculoskeletal/Extremeties: MAEW, FROM, Non-Tender - NEURO Level of Consciousness: Awake, Alert Motor/Sensory: No Motor Deficit, No Sensory Deficit - DERM Integumentary: Warm, Dry, No Rash Course - Re-evaluation Re-evalutation: 06/19/18 13:33 Prescription was written for his lisinopril and metformin. Patient was given an strict instructions that he need to follow-up with a primary doctor or [facility] for future prescriptions. Patient verbalized understanding and agreement with treatment plan and he was discharged home. - Vital Signs Vital signs: Temp Pulse Resp BP Pulse Ox 98.7 F 89 14 145/75 H 96 06/19/18 11:09 06/19/18 11:09 06/19/18 11:09 06/19/18 11:09 06/19/18 11:09 Discharge - Discharge Clinical Impression: Medication refill Condition: Stable Disposition: HOME, SELF-CARE Additional Instructions: You were here today for medication refills for your blood pressure and type 2 diabetes. You take lisinopril 30 mg by mouth daily and metformin at thousand milligrams twice a day by mouth. These medications need to be followed up with your primary doctor so please be sure to follow-up with her primary doctor or to [facility] for these refills is important that you have follow-up visits with labs for these 2 medications. FOLLOW-UP CARE: If you have been referred to a physician for follow-up care, call the physicians office for an appointment as you were instructed or within the next two days. If you experience worsening or a significant change in your symptoms, notify the physician immediately or return to the Emergency Department at any time for re-evaluation. Prescriptions: Lisinopril [Zestril] 30 mg PO DAILY #30 tablet Metformin HCl 1,000 mg PO BID #60 tablet Forms: Elevated Blood Pressure
== END 2018-06-19 11:58 | disposition home or self-care (01) ==
LOC: ER 11:06
DX: Z76.0 Encounter for issue of repeat prescription (principal); I10 Essential (primary) hypertension; E11.9 Type 2 diabetes mellitus without complications
CPT/HCPCS: 99281

== ENCOUNTER 2019-02-09 08:49 | Emergency (ER) | payer SELFPAY ==
--- NOTE | 2019-02-09 09:24 | ER Document Report ---
ED General - General Chief Complaint: Medication Refill Stated Complaint: Med Refill Time Seen by Provider: 02/09/19 09:22 TRAVEL OUTSIDE OF THE [place] IN LAST 30 DAYS: No - HPI Notes: Patient [facility] because he told him to come here to have insulin filled. He is on 3 diabetic oral medications at this time. He states his blood sugar sometimes gets into the 3-5 100s while he is working outside. He took his blood sugar this morning it was 150. No recent fevers or illnesses no cough or congestion no pain anywhere - Related Data Allergies/Adverse Reactions: No Known Allergies Allergy (Verified 02/09/19 08:50) Past Medical History - Social History Smoking Status: Unknown if Ever Smoked Family History: DM Patient has suicidal ideation: No Patient has homicidal ideation: No - Past Medical History Cardiac Medical History: Reports: Hx Hypertension Endocrine Medical History: Reports: Hx Diabetes Mellitus Type 2 Renal/ Medical History: Denies: Hx Peritoneal Dialysis GI Medical History: Reports: Hx Gastroesophageal Reflux Disease Psychiatric Medical History: Reports: Hx Anxiety, Hx Depression - Immunizations Hx Diphtheria, Pertussis, Tetanus Vaccination: Yes Hx Pneumococcal Vaccination: 06/14/00 Review of Systems - Review of Systems Constitutional: See HPI EENT: No symptoms reported Cardiovascular: No symptoms reported Respiratory: No symptoms reported Gastrointestinal: No symptoms reported Genitourinary: No symptoms reported Male Genitourinary: No symptoms reported Musculoskeletal: No symptoms reported Skin: No symptoms reported Hematologic/Lymphatic: No symptoms reported Neurological/Psychological: No symptoms reported Physical Exam - Vital signs Vitals: Temp Pulse Resp BP Pulse Ox 98.9 F 95 16 135/78 H 96 02/09/19 08:55 02/09/19 08:55 02/09/19 08:55 02/09/19 08:55 02/09/19 08:55 - General General appearance: Appears well, Alert - HEENT Head: Normocephalic, Atraumatic Eyes: Normal Conjunctiva: Normal Cornea: Normal Extraocular movements intact: Yes - Respiratory Respiratory status: No respiratory distress Chest status: Nontender Breath sounds: Normal - Cardiovascular Rhythm: Regular Heart sounds: Normal auscultation Murmur: No - Abdominal Inspection: Normal Distension: No distension - Back Back: Normal - Neurological Neuro grossly intact: Yes Cognition: Normal Orientation: AAOx4 Course - Re-evaluation Re-evalutation: 02/09/19 09:23 Sugar 251 emergency department well-appearing patient. Social work contacting [facility] clinic this time to further understand why he was sent to the emergency department. 02/09/19 10:33 Patient went to [facility] and was requesting insulin they stated that he denies any appointment so he came to the emergency department requesting insulin. He is not using insulin ever. I discussed that he is a follow-up with his family doctor or [facility] and continue take his oral diabetic medications until seen and evaluated. - Vital Signs Vital signs: Temp Pulse Resp BP Pulse Ox 98.9 F 95 16 135/78 H 96 02/09/19 08:55 02/09/19 08:55 02/09/19 08:55 02/09/19 08:55 02/09/19 08:55 - Laboratory Laboratory results interpreted by me: 02/09/19 09:23 POC Glucose 251 H Discharge - Discharge Clinical Impression: Diabetes Qualifiers: Diabetes mellitus type: other specified (including [place]) Diabetes mellitus manager terminal insulin use: without fpc use Diabetes mellitus complication status: with other specified complication Qualified Code(s): E13.69 - Other specified diabetes mellitus with other specified complication Condition: Good Disposition: HOME, SELF-CARE
[2019-02-09 10:59] VITALS: BP 132/77
== END 2019-02-09 11:00 | disposition home or self-care (01) ==
LOC: ER 08:49
DX: E13.69 Other specified diabetes mellitus with other specified complication (principal); I10 Essential (primary) hypertension; Z79.4 Long term (current) use of insulin
CPT/HCPCS: 82962; 99282

== ENCOUNTER 2020-02-05 12:59 | Emergency (ER) | payer SELFPAY ==
[2020-02-05 13:11] VITALS: BP 136/76
--- NOTE | 2020-02-05 14:18 | ER Document Report ---
ED General - General Chief Complaint: Medication Refill Stated Complaint: BLOOD SUGAR PROBLEMS Primary Care Provider: [facility] [Primary Care Provider] - Follow up as needed Notes: Patient is a 49-year-old male with a history of hypertension diabetes and insomnia who presents to the emergency department with a chief complaint of needing medication refilled. He states that he takes hydroxyzine 50 mg every night for sleep. States he ran out of the medicine about 3 days ago. Reports that he has a follow-up with his primary doctor but not to the of next month. States that he needs a refill of his medicines until that time. He denies any other acute complaint, pain or problems at this time. TRAVEL OUTSIDE OF THE [place] IN LAST 30 DAYS: No - Related Data Allergies/Adverse Reactions: No Known Allergies Allergy (Verified 02/09/19 08:50) Past Medical History - Social History Smoking Status: Never Smoker Frequency of alcohol use: None Drug Abuse: None Family History: DM - Past Medical History Cardiac Medical History: Reports: Hx Hypertension Endocrine Medical History: Reports: Hx Diabetes Mellitus Type 2 Renal/ Medical History: Denies: Hx Peritoneal Dialysis GI Medical History: Reports: Hx Gastroesophageal Reflux Disease Psychiatric Medical History: Reports: Hx Anxiety, Hx Depression - Immunizations Hx Diphtheria, Pertussis, Tetanus Vaccination: Yes Hx Pneumococcal Vaccination: 06/14/00 Review of Systems - Review of Systems Constitutional: denies: Fever EENT: denies: Throat pain Cardiovascular: denies: Palpitations Respiratory: denies: Short of breath Gastrointestinal: denies: Abdominal pain Genitourinary: denies: Pain Male Genitourinary: denies: Testicular pain Musculoskeletal: denies: Back pain Skin: denies: Change in color Hematologic/Lymphatic: denies: Easy bleeding Neurological/Psychological: denies: Headaches Physical Exam - Vital signs Vitals: Temp Pulse Resp BP Pulse Ox 99.2 F 88 20 136/76 H 100 02/05/20 13:09 02/05/20 13:09 02/05/20 13:09 02/05/20 13:09 02/05/20 13:09 - General General appearance: Appears well, Alert In distress: None - HEENT Head: Normocephalic, Atraumatic Eyes: Normal Pupils: PERRL - Respiratory Respiratory status: No respiratory distress Chest status: Nontender Breath sounds: Normal Chest palpation: Normal - Cardiovascular Rhythm: Regular Heart sounds: Normal auscultation - Neurological Neuro grossly intact: Yes Cognition: Normal Orientation: AAOx4 - Psychological Associated symptoms: Normal affect, Normal mood - Skin Skin Temperature: Warm Skin Moisture: Dry Skin Color: Normal Course - Re-evaluation Re-evalutation: 02/05/20 14:17 Patient given a 30-day supply of hydroxyzine 50 mg p.o. nightly. He will follow-up with his doctor as scheduled and discussed on the of next month. Advised to return here or any ER immediately with any new, persistent or worsening symptoms. He verbalized understood and agreed. - Vital Signs Vital signs: Temp Pulse Resp BP Pulse Ox 99.2 F 88 20 136/76 H 100 02/05/20 13:09 02/05/20 13:09 02/05/20 13:09 02/05/20 13:09 02/05/20 13:09 Discharge - Discharge Clinical Impression: Medication refill Condition: Stable Disposition: HOME, SELF-CARE Instructions: Insomnia ([facility]) Additional Instructions: Please follow-up with your primary care provider on the 15 of next month as scheduled. Please return here any ER immediately with any new, persistent or worsening symptoms. Prescriptions: Hydroxyzine Pamoate [Vistaril 50 mg Capsule] 50 mg PO QHS #30 capsule Referrals: [facility] [Primary Care Provider] - Follow up as needed
== END 2020-02-05 14:18 | disposition home or self-care (01) ==
LOC: ER 12:59
DX: Z76.0 Encounter for issue of repeat prescription (principal); G47.00 Insomnia, unspecified; I10 Essential (primary) hypertension; E11.9 Type 2 diabetes mellitus without complications
CPT/HCPCS: 99281

== ENCOUNTER 2020-03-03 06:20 | Emergency (ER) | payer SELFPAY ==
--- NOTE | 2020-03-03 08:21 | ER Document Report ---
HPI - HPI Time Seen by Provider: 03/03/20 08:17 Pain Level: 0 Notes: Patient is a 29-year-old male presents emergency department requesting medication refill. Patient reports that he needs his paroxetine and hydroxyzine refilled. He sees a primary care provider at the [facility] and had an appointment on the however the provider was not there. He will call and get another appointment but needs his medications refilled. He has no other complaints today. - ROS Notes: Patient has no medical complaints. Systems Reviewed and Negative: Yes All other systems reviewed and negative - REPRODUCTIVE Reproductive: DENIES: : Past Medical History - General Information source: Patient - Social History Smoking Status: Never Smoker Chew tobacco use (# tins/day): No Frequency of alcohol use: None Drug Abuse: None Family History: DM - Past Medical History Cardiac Medical History: Reports: Hx Hypertension Endocrine Medical History: Reports: Hx Diabetes Mellitus Type 2 Renal/ Medical History: Denies: Hx Peritoneal Dialysis GI Medical History: Reports: Hx Gastroesophageal Reflux Disease Psychiatric Medical History: Reports: Hx Anxiety, Hx Depression - Immunizations Hx Diphtheria, Pertussis, Tetanus Vaccination: Yes Hx Pneumococcal Vaccination: 06/14/00 Vertical Provider Document - CONSTITUTIONAL Notes: PHYSICAL EXAMINATION: GENERAL: Well-appearing, well-nourished and in no acute distress. HEAD: Atraumatic, normocephalic. EYES: Pupils equal round extraocular movements intact, conjunctiva are normal. ENT: Nares patent NECK: Normal range of motion LUNGS: No respiratory distress Musculoskeletal: Normal range of motion NEUROLOGICAL: Normal speech, normal gait. PSYCH: Normal mood, normal affect. SKIN: Warm, Dry, normal turgor, no rashes or lesions noted. - INFECTION CONTROL TRAVEL OUTSIDE OF THE [place] IN LAST 30 DAYS: No Course - Re-evaluation Re-evalutation: Patient's medications refilled as per his request. I encouraged him to please follow-up with primary care at the [facility], call them tomorrow to schedule an appointment. - Vital Signs Vital signs: Temp Pulse Resp BP Pulse Ox 98.2 F 82 20 154/74 H 98 03/03/20 06:28 03/03/20 06:28 03/03/20 06:28 03/03/20 06:28 03/03/20 06:28 Discharge - Discharge Clinical Impression: Encounter for medication refill Condition: Stable Disposition: HOME, SELF-CARE Additional Instructions: Please call and make an appointment with your doctor for a follow-up. Take medications as prescribed. Prescriptions: Paroxetine HCl [Paxil 20 mg Tablet] 40 mg PO DAILY #60 tablet Hydroxyzine Pamoate [Vistaril 25 mg Capsule] 25 mg PO TID #90 capsule
[2020-03-03 08:59] VITALS: BP 150/79
== END 2020-03-03 08:59 | disposition home or self-care (01) ==
LOC: ER 06:20
DX: Z76.0 Encounter for issue of repeat prescription (principal); F32.9 Major depressive disorder, single episode, unspecified; F41.9 Anxiety disorder, unspecified; I10 Essential (primary) hypertension; E11.9 Type 2 diabetes mellitus without complications
CPT/HCPCS: 99283

== ENCOUNTER 2020-06-04 17:25 | Emergency (ER) | payer SELFPAY ==
[2020-06-04 17:37] VITALS: BP 153/91
--- NOTE | 2020-06-04 18:10 | ER Document Report ---
HPI - HPI Time Seen by Provider: 06/04/20 18:03 Pain Level: Denies Notes: 50-year-old male with a history of hypertension diabetes and depression presents to the emergency room for medication refill of his lisinopril, Vistaril and paroxetine. Patient has been seen multiple times in this emergency room for medication refills. He states that he does have an appointment next month with his primary care provider. He has medications all have 2 refills until 2020. He states that the doctor/pharmacy will not refill this medication without lab work. Denies any suicidal ideation or homicidal ideation. Denies fevers, chills, chest pain,palpitations, shortness of breath, dyspnea, nausea, vomiting, diarrhea, abdominal pain, hematuria,blurred vision, double vision, loss of vision, speech changes, LH, dizziness, syncope, headaches, wheezing, ST, URI, neck pain, weakness, bowel or bladder dysfunction, saddle anesthesia, numbness or tingling in bilateral upper or lower extremities equally, muscle paralysis, weakness in bilateral upper or lower extremities equally or rash. - CONSTITUTIONAL Constitutional: DENIES: Fever, Chills - REPRODUCTIVE Reproductive: DENIES: : Past Medical History - General Information source: Patient - Social History Smoking Status: Current Some Day Smoker Family History: DM Patient has homicidal ideation: No - Past Medical History Cardiac Medical History: Reports: Hx Hypertension Endocrine Medical History: Reports: Hx Diabetes Mellitus Type 2 Renal/ Medical History: Denies: Hx Peritoneal Dialysis GI Medical History: Reports: Hx Gastroesophageal Reflux Disease Psychiatric Medical History: Reports: Hx Anxiety, Hx Depression - Immunizations Hx Diphtheria, Pertussis, Tetanus Vaccination: Yes Hx Pneumococcal Vaccination: 06/14/00 Vertical Provider Document - CONSTITUTIONAL Agree With Documented VS: Yes Exam Limitations: No Limitations General Appearance: WD/WN Notes: MEDICATIONS: I agree with the patient medications as charted by the RN. ALLERGIES: I agree with the allergies as charted by the RN. PAST MEDICAL HISTORY/PAST SURGICAL HISTORY: Reviewed and agree as charted by RN. SOCIAL HISTORY: Reviewed and agree as charted by RN. FAMILY HISTORY: No significant familial comorbid conditions directly related to patient complaint EXAM: Reviewed vital signs as charted by RN. PHYSICAL EXAMINATION:reviewed vital signs by RN GENERAL: Well-appearing, well-nourished and in no acute distress. HEAD: Atraumatic, normocephalic. EYES: Pupils equal round and reactive to light, extraocular movements intact, sclera anicteric, conjunctiva are normal. ENT: Nares patent, oropharynx clear without exudates. Moist mucous membranes. NECK: Normal range of motion, supple without lymphadenopathy LUNGS: Breath sounds clear to auscultation bilaterally and equal. No wheezes rales or rhonchi. HEART: Regular rate and rhythm without murmurs ABDOMEN: Soft, nontender, nondistended abdomen. No guarding, no rebound. No masses appreciated. Musculoskeletal: Normal range of motion, no pitting or edema. No cyanosis. NEUROLOGICAL: Cranial nerves grossly intact. Normal speech, normal gait. Normal sensory, motor exams PSYCH: Normal mood, normal affect. SKIN: Warm, Dry, normal turgor, no rashes or lesions noted. - INFECTION CONTROL TRAVEL OUTSIDE OF THE [place] IN LAST 30 DAYS: No Course - Re-evaluation Re-evalutation: 06/04/20 18:17 Afebrile vital stable no distress. Nurses notes reviewed. Patient's Accu-Chek was in the 130s. Discussed with patient that I can refill his lisinopril 20 mg tablet for 20 days since I have no labs on this patient, he does not want any labs, he has been seen multiple times for medication refills. I discussed with patient that he cannot use the emergency room as his primary care office as this is inappropriate healthcare management for himself and he does need to follow-up with a primary care provider. Patient was agreeable with this plan of care. Patient denies any homicidal suicidal ideations. Patient states that after performing a Medical Screening Examination, I estimate there is LOW risk for RUPTURED ESOPHAGUS, PNEUMOTHORAX, PULMONARY EMBOLISM, ACUTE CORONARY SYNDROME, OR THORACIC AORTIC DISSECTION, thus I consider the discharge disposition reasonable. I have reevaluated this patient multiple times and no significant life threatening changes are noted. The patient and I have discussed the diagnosis and risks, and we agree with discharging home with close follow-up. We also discussed returning to the Emergency Department immediately if new or worsening symptoms occur. We have discussed the symptoms which are most concerning (e.g., bloody sputum, worsening pain or shortness of breath) that necessitate immediate return. - Vital Signs Vital signs: Temp Pulse Resp BP Pulse Ox 98.6 F 103 H 20 153/91 H 98 12/21/20 17:34 06/03/20 17:34 06/03/20 17:34 06/03/20 17:34 06/03/20 17:34 - Laboratory Results Critical Laboratory Results Reviewed: No Critical Results - Radiology Results Critical Radiology Results Reviewed: No Critical Results Discharge - Discharge Clinical Impression: Hypertension Condition: Stable Disposition: HOME, SELF-CARE Instructions: High Blood Pressure ([facility]) Additional Instructions: I did refill you today for lisinopril 1 mg daily. I cannot refill you for Paxil or Vistaril. You do need to follow-up with your primary care provider. Given to the emergency room multiple times for medication refills, you do need to follow-up with your primary care provider as this is a person who is managing your health care. Return to the emergency room if you experience any chest pain shortness of breath, fevers, nausea, vomiting etc. Return immediately for any new or worsening symptoms. Follow up with primary care provider, call tomorrow to make followup appointment. Prescriptions: Lisinopril [Prinivil] 20 mg PO DAILY #20 tablet Forms: Return to Work Referrals: LUISA STROUD MD [COMMUNITY BASED STAFF] - Follow up as needed
== END 2020-06-04 18:46 | disposition home or self-care (01) ==
LOC: ER 17:25
DX: Z76.0 Encounter for issue of repeat prescription (principal); I10 Essential (primary) hypertension; F32.9 Major depressive disorder, single episode, unspecified; E11.9 Type 2 diabetes mellitus without complications; F17.200 Nicotine dependence, unspecified, uncomplicated
CPT/HCPCS: 99283